=== PATIENT | female | born 1965 | race Caucasian/White ===

== ENCOUNTER 2019-03-22 16:44 | Emergency (ER) | payer SELFPAY ==
[2019-03-22] MEDS ORDERED: SODIUM CHLORIDE 0.9% 1,000 ML IV STA ×2 (17:05)
[2019-03-22] MEDS ORDERED: SODIUM CHLORIDE 0.9% 500 ML 500 ML IV STA (17:05)
[2019-03-22] MEDS ORDERED: ONDANSETRON 4 MG/2 ML VIAL IVP STA (17:05)
[2019-03-22] MEDS ORDERED: PANTOPRAZOLE 40 MG/10 ML VIAL IVP STA (17:19)
[2019-03-22] MEDS ORDERED: KETOROLAC 30 MG/ML 1 ML VIAL IVP STA (17:19)
[2019-03-22] MEDS ORDERED: DIAZEPAM 5 MG/ML 2 ML INJ IVP STA (17:19)
[2019-03-22 17:43] LABS: Basophils # (A) 0.1 k/uL (0-0.2); Basophils % (A) 2 %; Eosinophils # (A) 0.2 k/uL (0-0.7); Eosinophils % (A) 2 %; HCT 37.8 % (34.0-46.0); HGB 12.4 gm/dL (11.4-16.0); Lymphocytes # (A) 3.1 k/uL (1.0-4.8); Lymphocytes % (A) 41 %; MCH 30.1 pg (25.0-35.0); MCHC 32.8 g/dL (31.0-37.0); MCV 91.8 fL (80.0-100.0); Mean Platelet Volume 7.5; Monocytes # (A) 0.4 k/uL (0-1.0); Monocytes % (A) 5 %; Neutrophils # (A) 3.6 k/uL (1.3-7.7); Neutrophils % (A) 48 %; Platelet Count 409 k/uL (150-450); RBC 4.11 m/uL (3.80-5.40); RDW 12.8 % (11.5-15.5); WBC 7.5 k/uL (3.8-10.6)
[2019-03-22 17:52] LABS: ALT 12 U/L (4-34); AST 28 U/L (14-36); African American GFR (CKD) >90 (>60 ml/min/1.73 sqM); Albumin 4.6 g/dL (3.5-5.0); Alkaline Phosphatase 66 U/L (38-126); Anion Gap 10 mmol/L; Blood Urea Nitrogen 20 mg/dL (7-17); Calcium 9.8 mg/dL (8.4-10.2); Carbon Dioxide 24 mmol/L (22-30); Chloride 107 mmol/L (98-107); Glucose 106 mg/dL (74-99); Magnesium 1.9 mg/dL (1.6-2.3); Non-African American GFR(CKD) >90 (>60 ml/min/1.73 sqM); Phosphorus 3.3 mg/dL (2.5-4.5); Potassium 3.6 mmol/L (3.5-5.1); Sodium 141 mmol/L (137-145); Total Bilirubin 0.5 mg/dL (0.2-1.3); Total Protein 7.3 g/dL (6.3-8.2)
--- NOTE | 2019-03-22 18:00 | ED ---
Nausea/Vomiting/Diarrhea HPI - General Chief complaint: Nausea/Vomiting/Diarrhea Stated complaint: nausea/vomiting/body aches Time Seen by Provider: 03/22/19 16:55 Source: patient, RN notes reviewed, old records reviewed Mode of arrival: wheelchair Limitations: no limitations - History of Present Illness Initial comments: This is a 53-year-old female DF for evaluation of nausea vomiting and diarrhea muscle aches muscle pains fevers and chills. Immunizations up-to-date recent travel history from [place], patient is new to [facility]. No known other sick contacts. No recent inpatient hospitalizations. No recent medication changes patient not currently taking her medications as 9 drug or alcohol abuse MD complaint: nausea, vomiting, abdominal pain -: days(s) Description of Vomiting: food contents Description of Diarrhea: water Location: diffuse Radiation: none Severity: mild Severity scale (1-10): 1 Quality: cramping, aching Consistency: intermittent Improves with: none Worsens with: none Context: sick contacts Associated Symptoms: myalgias, nausea/vomiting, weakness - Related Data Allergies Allergy/AdvReac Type Severity Reaction Status Date / Time haloperidol Allergy Rapid Verified 03/22/19 17:56 Heart Rate nitrofurantoin Allergy Rash/Hives Verified 03/22/19 17:56 [From Macrobid] prochlorperazine Allergy Rapid Verified 03/22/19 17:56 [From Compazine] Heart Rate Review of Systems ROS Statement: Those systems with pertinent positive or pertinent negative responses have been documented in the HPI. ROS Other: All systems not noted in ROS Statement are negative. Past Medical History Additional Past Medical History / Comment(s): restless leg, back pain History of Any Multi-Drug Resistant Organisms: None Reported Past Surgical History: Appendectomy, Breast Surgery, Section, Hysterectomy Past Psychological History: No Psychological Hx Reported Smoking Status: Never smoker Past Alcohol Use History: None Reported Past Drug Use History: None Reported General Exam Limitations: no limitations General appearance: alert, in no apparent distress Head exam: Present: atraumatic, normocephalic, normal inspection Eye exam: Present: normal appearance, PERRL, EOMI. Absent: scleral icterus, conjunctival injection, periorbital swelling ENT exam: Present: normal exam, mucous membranes moist Neck exam: Present: normal inspection. Absent: tenderness, meningismus, lymphadenopathy Respiratory exam: Present: normal lung sounds bilaterally. Absent: respiratory distress, wheezes, rales, rhonchi, stridor Cardiovascular Exam: Present: normal rhythm, tachycardia, normal heart sounds. Absent: systolic murmur, diastolic murmur, rubs, gallop, clicks GI/Abdominal exam: Present: soft, normal bowel sounds. Absent: distended, tenderness, guarding, rebound, rigid Extremities exam: Present: normal inspection, full ROM, normal capillary refill. Absent: tenderness, pedal edema, joint swelling, calf tenderness Back exam: Present: normal inspection Neurological exam: Present: alert, oriented X3, CN II-XII intact Psychiatric exam: Present: normal affect, normal mood Skin exam: Present: warm, dry, intact, normal color. Absent: rash Course Vital Signs 03/22/19 03/22/19 16:48 19:16 Temperature 98.2 F Pulse Rate 109 H 90 Respiratory 20 20 Rate Blood Pressure 118/85 107/86 O2 Sat by Pulse 98 98 Oximetry - Reevaluation(s) Reevaluation #1: 03/22/19 18:24 Medical records reviewed Reevaluation #2: 03/22/19 18:24 Nausea vomiting pain is improved currently Medical Decision Making - Medical Decision Making 53 female feeling significantly improved labwork otherwise reveals no abnormalities, symptoms significantly improved here in the ER patient will be discharged home - Lab Data Result diagrams: 03/22/19 17:32 03/22/19 17:32 Lab Results 03/22/19 03/22/19 03/22/19 Range/Units 17:32 17:32 17:32 WBC 7.5 (3.8-10.6) k/uL RBC 4.11 (3.80-5.40) m/uL Hgb 12.4 (11.4-16.0) gm/dL Hct 37.8 (34.0-46.0) % MCV 91.8 (80.0-100.0) fL MCH 30.1 (25.0-35.0) pg MCHC 32.8 (31.0-37.0) g/dL RDW 12.8 (11.5-15.5) % Plt Count 409 (150-450) k/uL Neutrophils % 48 % Lymphocytes % 41 % Monocytes % 5 % Eosinophils % 2 % Basophils % 2 % Neutrophils # 3.6 (1.3-7.7) k/uL Lymphocytes # 3.1 (1.0-4.8) k/uL Monocytes # 0.4 (0-1.0) k/uL Eosinophils # 0.2 (0-0.7) k/uL Basophils # 0.1 (0-0.2) k/uL Sodium 141 (137-145) mmol/L Potassium 3.6 (3.5-5.1) mmol/L Chloride 107 (98-107) mmol/L Carbon Dioxide 24 (22-30) mmol/L Anion Gap 10 mmol/L BUN 20 H (7-17) mg/dL Creatinine 0.66 (0.52-1.04) mg/dL Est GFR (CKD-EPI)AfAm >90 (>60 ml/min/1.73 sqM) Est GFR (CKD-EPI)NonAf >90 (>60 ml/min/1.73 sqM) Glucose 106 H (74-99) mg/dL Plasma Lactic Acid Aaron 1.2 (0.7-2.0) mmol/L Calcium 9.8 (8.4-10.2) mg/dL Phosphorus 3.3 (2.5-4.5) mg/dL Magnesium 1.9 (1.6-2.3) mg/dL Total Bilirubin 0.5 (0.2-1.3) mg/dL AST 28 (14-36) U/L ALT 12 (4-34) U/L Alkaline Phosphatase 66 (38-126) U/L Troponin I (0.000-0.034) ng/mL Total Protein 7.3 (6.3-8.2) g/dL Albumin 4.6 (3.5-5.0) g/dL Lipase (23-300) U/L Urine Color Urine Appearance (Clear) Urine pH (5.0-8.0) Ur Specific [place] (1.001-1.035) Urine Protein (Negative) Urine Glucose (UA) (Negative) Urine Ketones (Negative) Urine Blood (Negative) Urine Nitrite (Negative) Urine Bilirubin (Negative) Urine Urobilinogen (<2.0) mg/dL Ur Leukocyte Esterase (Negative) Urine RBC (0-5) /hpf Urine WBC (0-5) /hpf Ur Squamous Epith Cells (0-4) /hpf Hyaline Casts (0-2) /lpf Urine Mucus (None) /hpf Influenza Type A RNA (Not Detectd) Influenza Type B (PCR) (Not Detectd) 03/22/19 03/22/19 03/22/19 Range/Units 17:32 18:11 18:55 WBC (3.8-10.6) k/uL RBC (3.80-5.40) m/uL Hgb (11.4-16.0) gm/dL Hct (34.0-46.0) % MCV (80.0-100.0) fL MCH (25.0-35.0) pg MCHC (31.0-37.0) g/dL RDW (11.5-15.5) % Plt Count (150-450) k/uL Neutrophils % % Lymphocytes % % Monocytes % % Eosinophils % % Basophils % % Neutrophils # (1.3-7.7) k/uL Lymphocytes # (1.0-4.8) k/uL Monocytes # (0-1.0) k/uL Eosinophils # (0-0.7) k/uL Basophils # (0-0.2) k/uL Sodium (137-145) mmol/L Potassium (3.5-5.1) mmol/L Chloride (98-107) mmol/L Carbon Dioxide (22-30) mmol/L Anion Gap mmol/L BUN (7-17) mg/dL Creatinine (0.52-1.04) mg/dL Est GFR (CKD-EPI)AfAm (>60 ml/min/1.73 sqM) Est GFR (CKD-EPI)NonAf (>60 ml/min/1.73 sqM) Glucose (74-99) mg/dL Plasma Lactic Acid Aaron (0.7-2.0) mmol/L Calcium (8.4-10.2) mg/dL Phosphorus (2.5-4.5) mg/dL Magnesium (1.6-2.3) mg/dL Total Bilirubin (0.2-1.3) mg/dL AST (14-36) U/L ALT (4-34) U/L Alkaline Phosphatase (38-126) U/L Troponin I <0.012 (0.000-0.034) ng/mL Total Protein (6.3-8.2) g/dL Albumin (3.5-5.0) g/dL Lipase 89 (23-300) U/L Urine Color Urine Appearance (Clear) Urine pH (5.0-8.0) Ur Specific [place] (1.001-1.035) Urine Protein (Negative) Urine Glucose (UA) (Negative) Urine Ketones (Negative) Urine Blood (Negative) Urine Nitrite (Negative) Urine Bilirubin (Negative) Urine Urobilinogen (<2.0) mg/dL Ur Leukocyte Esterase (Negative) Urine RBC (0-5) /hpf Urine WBC (0-5) /hpf Ur Squamous Epith Cells (0-4) /hpf Hyaline Casts (0-2) /lpf Urine Mucus (None) /hpf Influenza Type A RNA Not Detected (Not Detectd) Influenza Type B (PCR) Not Detected (Not Detectd) 03/22/19 Range/Units 19:20 WBC (3.8-10.6) k/uL RBC (3.80-5.40) m/uL Hgb (11.4-16.0) gm/dL Hct (34.0-46.0) % MCV (80.0-100.0) fL MCH (25.0-35.0) pg MCHC (31.0-37.0) g/dL RDW (11.5-15.5) % Plt Count (150-450) k/uL Neutrophils % % Lymphocytes % % Monocytes % % Eosinophils % % Basophils % % Neutrophils # (1.3-7.7) k/uL Lymphocytes # (1.0-4.8) k/uL Monocytes # (0-1.0) k/uL Eosinophils # (0-0.7) k/uL Basophils # (0-0.2) k/uL Sodium (137-145) mmol/L Potassium (3.5-5.1) mmol/L Chloride (98-107) mmol/L Carbon Dioxide (22-30) mmol/L Anion Gap mmol/L BUN (7-17) mg/dL Creatinine (0.52-1.04) mg/dL Est GFR (CKD-EPI)AfAm (>60 ml/min/1.73 sqM) Est GFR (CKD-EPI)NonAf (>60 ml/min/1.73 sqM) Glucose (74-99) mg/dL Plasma Lactic Acid Aaron (0.7-2.0) mmol/L Calcium (8.4-10.2) mg/dL Phosphorus (2.5-4.5) mg/dL Magnesium (1.6-2.3) mg/dL Total Bilirubin (0.2-1.3) mg/dL AST (14-36) U/L ALT (4-34) U/L Alkaline Phosphatase (38-126) U/L Troponin I (0.000-0.034) ng/mL Total Protein (6.3-8.2) g/dL Albumin (3.5-5.0) g/dL Lipase (23-300) U/L Urine Color Yellow Urine Appearance Clear (Clear) Urine pH 6.5 (5.0-8.0) Ur Specific [place] 1.034 (1.001-1.035) Urine Protein 1+ H (Negative) Urine Glucose (UA) Negative (Negative) Urine Ketones 1+ H (Negative) Urine Blood Negative (Negative) Urine Nitrite Negative (Negative) Urine Bilirubin Negative (Negative) Urine Urobilinogen <2.0 (<2.0) mg/dL Ur Leukocyte Esterase Negative (Negative) Urine RBC 5 (0-5) /hpf Urine WBC 2 (0-5) /hpf Ur Squamous Epith Cells 2 (0-4) /hpf Hyaline Casts 1 (0-2) /lpf Urine Mucus Moderate H (None) /hpf Influenza Type A RNA (Not Detectd) Influenza Type B (PCR) (Not Detectd) - EKG Data -: EKG Interpreted by Me (EKG shows sinus rhythm rate of 86, FL 136, QRS 78, QTC 464) Disposition Clinical Impression: Dehydration, Gastroenteritis Disposition: HOME SELF-CARE Condition: Good Instructions (If sedation given, give patient instructions): Acute Nausea and Vomiting (ED) Is patient prescribed a controlled substance at d/c from ED?: No Referrals: None,Stated [Primary Care Provider] - 1-2 days
[2019-03-22] MEDS ORDERED: MORPHINE SULFATE 4 MG/ML SYRINGE IVP STA (18:24)
[2019-03-22 19:50] LABS: Appearance,Urine Clear (Clear); Bilirubin,Urine Negative (Negative); Blood,Urine Negative (Negative); Color,Urine Yellow; Glucose,Urine (UA) Negative (Negative); Hyaline Casts,Urine 1 /lpf (0-2); Ketones,Urine 1+ (Negative); Leukocyte Esterase,Urine Negative (Negative); Mucus,Urine Moderate /hpf; Nitrite,Urine Negative (Negative); PH, Urine 6.5 (5.0-8.0); Protein,Urine 1+ (Negative); RBC,Urine 5 /hpf (0-5); Specific Gravity,Urine 1.034 (1.001-1.035); Squamous Epithelial Cell,Urine 2 /hpf (0-4); Urobilinogen,Urine <2.0 mg/dL (<2.0); WBC,Urine 2 /hpf (0-5)
[2019-03-22] MEDS ORDERED: ONDANSETRON 4 MG ODT STARTER PACK 2 TAB BTL PO STA (19:53)
[2019-03-22] MEDS ORDERED: ACET/COD 300 MG/30 MG STARTER PACK 6 TAB BTL PO STA (19:53)
[2019-03-22] MEDS ORDERED: IBUPROFEN 600 MG STARTER PACK 4 TAB BTL PO STA (19:53)
[2019-03-22 20:21] VITALS: BP 116/83; PULSE 87; RESP 16; TEMP 98.3
== END 2019-03-22 20:29 | disposition home or self-care (01) ==
LOC: EC 16:44
DX: K52.9 Noninfective gastroenteritis and colitis, unspecified (principal); E86.0 Dehydration; Z88.1 Allergy status to other antibiotic agents; Z88.8 Allergy status to other drugs, medicaments and biological substances; Z90.89 Acquired absence of other organs; Z90.710 Acquired absence of both cervix and uterus
CPT/HCPCS: 36415; 93005; 80053; 83605; 83690; 83735; 84100; 84484; 85025; 81001; 87502; 99284; 96374; 96375 ×4; 96361 ×3; J2270; J3360; J2405; J1885; S0119; C9113

== ENCOUNTER 2019-09-02 13:43 | Emergency (ER) | payer BC ==
[2019-09-02 13:50] VITALS: BP 115/73; PULSE 99; RESP 20; TEMP 98.3
[2019-09-02] MEDS ORDERED: KETOROLAC 60 MG/2 ML VIAL IM STA (14:19)
[2019-09-02] MEDS ORDERED: ORPHENADRINE 30 MG/ML 2 ML VIAL IM STA (14:19)
--- NOTE | 2019-09-02 14:36 | ED ---
Back Pain HPI - General Chief Complaint: Back Pain/Injury Stated Complaint: Back Pain Time Seen by Provider: 09/02/19 14:04 Source: patient, RN notes reviewed, old records reviewed Limitations: no limitations - History of Present Illness Initial Comments: Patient is a 53-year-old female who presents emergency department today for evaluation with complaints of thoracic back, neck pain, and abdominal wall strain after doing heavy lifting on moving a bed upstairs to her new apartment. Patient reports she saw a chiropractor on Tuesday and has been taking Tylenol and Motrin for pain. She reports that her muscles in her neck and back feel very tight. She reports that when she was lifting she felt a popping sensation. Patient states that she has no numbness or tingling on her legs. She reports that her abdominal anus reproducible with movement and the motion of doing an abdominal crunch. - Related Data Previous Rx's Medication Instructions Recorded Cyclobenzaprine [Flexeril] 10 mg PO TID #12 tab 09/02/19 Ibuprofen [Motrin] 600 mg PO Q8HR PRN #20 tab 09/02/19 Allergies Allergy/AdvReac Type Severity Reaction Status Date / Time haloperidol Allergy Rapid Verified 09/02/19 13:50 Heart Rate nitrofurantoin Allergy Rash/Hives Verified 09/02/19 13:50 [From Macrobid] prochlorperazine Allergy Rapid Verified 09/02/19 13:50 [From Compazine] Heart Rate Review of Systems ROS Statement: Those systems with pertinent positive or pertinent negative responses have been documented in the HPI. ROS Other: All systems not noted in ROS Statement are negative. Past Medical History Past Medical History: Rheumatoid Arthritis (RA) Additional Past Medical History / Comment(s): restless leg, back pain, scoliosis History of Any Multi-Drug Resistant Organisms: None Reported Past Surgical History: Appendectomy, Breast Surgery, Section, Hysterectomy Past Psychological History: No Psychological Hx Reported Smoking Status: Never smoker Past Alcohol Use History: None Reported Past Drug Use History: None Reported General Exam - General Exam Comments Initial Comments: Patient is a 53-year-old female. Alert and oriented 3. No significant distress. Limitations: no limitations General appearance: alert, in no apparent distress Head exam: Present: atraumatic, normocephalic, normal inspection Eye exam: Present: normal appearance, PERRL, EOMI. Absent: scleral icterus, conjunctival injection, periorbital swelling ENT exam: Present: normal exam, mucous membranes moist, other (Patient has cervical spinal muscle tenderness. ) Neck exam: Present: normal inspection, tenderness (C5-C7, muscle spasm ). Absent: meningismus, lymphadenopathy Respiratory exam: Present: normal lung sounds bilaterally. Absent: respiratory distress, wheezes, rales, rhonchi, stridor Cardiovascular Exam: Present: regular rate, normal rhythm, normal heart sounds. Absent: systolic murmur, diastolic murmur, rubs, gallop, clicks GI/Abdominal exam: Present: soft, normal bowel sounds. Absent: distended, tenderness, guarding, rebound, rigid Extremities exam: Present: normal inspection, full ROM, normal capillary refill. Absent: tenderness, pedal edema, joint swelling, calf tenderness Back exam: Present: normal inspection, tenderness (thoracic spinal and paraspinal tenderness) Neurological exam: Present: alert, oriented X3, CN II-XII intact Psychiatric exam: Present: normal affect, normal mood Course Vital Signs 09/02/19 13:47 Temperature 98.3 F Pulse Rate 99 Respiratory 20 Rate Blood Pressure 115/73 O2 Sat by Pulse 99 Oximetry Medical Decision Making - Medical Decision Making Patient's 53-year-old female with onset of neck and thoracic back pain and tenderness after heavy lifting up a mattress on . She reports she is lifting it upstairs apartment. Patient reports she heard a popping sensation. She has no neurological deficit this time. Patient does have some thoracic spinal tenderness. Mainly overs T7 through 10. Patient's thoracic spine x-ray shows no compression fractures. There is evidence of degenerative disc disease noted. Cervical spine also shows spinal listhesis of C5 and C6. I discussed this starting this anti-inflammatory medicine and muscle relaxers and shortness of pavement while in emergency room. She is given IM Toradol and Norflex reevaluation she states slightly improved. I discussed following up with her primary care physician and she can continue chiropractic therapy. - Radiology Data Radiology results: report reviewed No acute fracture or subluxation on thoracic spine. Cervical spine shows evidence of degenerative disc disease. Associated spinal listhesis at C5-C6. Soft tissues are normal. Disposition Clinical Impression: Muscle spasms of neck, Upper back strain, Muscular abdominal pain in epigastric region Disposition: HOME SELF-CARE Condition: Good Instructions (If sedation given, give patient instructions): Back Pain (ED) Additional Instructions: Please use medication as discussed. Alternating between heat and ice over the back and neck to help promote muscle relaxation. Please follow up with family doctor if symptoms have not improved over the next two days. Please return to the emergency room if your symptoms increase or worsen or for any other concerns. Prescriptions: Cyclobenzaprine [Flexeril] 10 mg PO TID #12 tab Ibuprofen [Motrin] 600 mg PO Q8HR PRN #20 tab PRN Reason: Pain Is patient prescribed a controlled substance at d/c from ED?: No Referrals: None,Stated [Primary Care Provider] - 1-2 days Dav Sloan MD [REFERRING] - 1-2 days Time of Disposition: 15:13
[2019-09-02] MEDS ORDERED: ACET/COD 300 MG/30 MG STARTER PACK 6 TAB BTL PO STA (14:47)
--- NOTE | 2019-09-02 15:00 | XR ---
Cervical spine HISTORY: Pain after lifting 3 views of the cervical spine Cervical vertebral bodies show preserved height and alignment. There is loss of disc height at C5-C6, associated spondylosis. Prevertebral soft tissues are normal. Bone mineralization is normal. IMPRESSION: Degenerative disc disease.
--- NOTE | 2019-09-02 15:01 | XR ---
Thoracic spine HISTORY: Pain 3 views of the thoracic spine There is a slight spinal curvature. Thoracic vertebral bodies show preserved height and bone minerali zation. Disc spaces are maintained. Spondylosis present at the upper lumbar spine greater than thorac ic vertebral bodies. IMPRESSION: No acute fracture or subluxation.
== END 2019-09-02 15:39 | disposition home or self-care (01) ==
LOC: EC 13:43
DX: S29.012A Strain of muscle and tendon of back wall of thorax, initial encounter (principal); M43.12 Spondylolisthesis, cervical region; M79.18 Myalgia, other site; Z88.8 Allergy status to other drugs, medicaments and biological substances; X50.0XXA Overexertion from strenuous movement or load, initial encounter; Y92.009 Unspecified place in unspecified non-institutional (private) residence as the place of occurrence of the external cause
CPT/HCPCS: 72070; 72040; 99284; 96372 ×2; J2360; J1885

== ENCOUNTER 2019-09-03 14:24 | Emergency (ER) | payer BC ==
[2019-09-03 14:28] VITALS: BP 108/75; PULSE 81; RESP 18; TEMP 98.4
[2019-09-03] MEDS ORDERED: HYDROcodone/APAP 5-325MG 1 EACH TAB PO STA (15:05)
[2019-09-03] MEDS ORDERED: KETOROLAC 60 MG/2 ML VIAL IM STA (15:05)
[2019-09-03] MEDS ORDERED: LIDOCAINE 5% PATCH TOPICAL STA (15:05)
[2019-09-03] MEDS ORDERED: dexAMETHasone 4 MG TAB PO STA (15:05)
--- NOTE | 2019-09-03 15:05 | ED ---
Back Pain HPI - General Chief Complaint: Back Pain/Injury Stated Complaint: Revisit Back Pain Time Seen by Provider: 09/03/19 14:30 Source: patient, RN notes reviewed, old records reviewed Limitations: no limitations - History of Present Illness Initial Comments: This is a 53-year-old female DF for evaluation presents today for evaluation regards to back pain acute on chronic back pain ER visit for similar back pain. Patient is back pain worse today, similar symptoms yesterday. Patient has no neurological symptoms no loss of bowel or bladder no weakness able to ambulate w ithout difficulty Complaint: back pain -: days(s) Similar Symptoms Previously: Yes Place: home Radiation: none Severity: moderate Severity scale (1-10): 6 Quality: aching Consistency: constant Improves With: none Worsens With: movement Context: while lifting Associated Symptoms: denies other symptoms - Related Data Home Medications Medication Instructions Recorded Confirmed [id number] 1 tab PO Q4H PRN 09/03/19 09/03/19 [Excedrin] clonazePAM [KlonoPIN] 1 mg PO BID PRN 09/03/19 09/03/19 Previous Rx's Medication Instructions Recorded Cyclobenzaprine [Flexeril] 10 mg PO TID #12 tab 09/02/19 Ibuprofen [Motrin] 600 mg PO Q8HR PRN #20 tab 09/02/19 Allergies Allergy/AdvReac Type Severity Reaction Status Date / Time haloperidol Allergy Rapid Verified 09/03/19 15:10 Heart Rate nitrofurantoin Allergy Rash/Hives Verified 09/03/19 15:10 [From Macrobid] prochlorperazine Allergy Rapid Verified 09/03/19 15:10 [From Compazine] Heart Rate Review of Systems ROS Statement: Those systems with pertinent positive or pertinent negative responses have been documented in the HPI. ROS Other: All systems not noted in ROS Statement are negative. Past Medical History Past Medical History: Rheumatoid Arthritis (RA) Additional Past Medical History / Comment(s): restless leg, back pain, scoliosis History of Any Multi-Drug Resistant Organisms: None Reported Past Surgical History: Appendectomy, Breast Surgery, Section, Hysterectomy Past Psychological History: No Psychological Hx Reported Smoking Status: Never smoker Past Alcohol Use History: None Reported Past Drug Use History: None Reported General Exam Limitations: no limitations General appearance: alert, in no apparent distress Head exam: Present: atraumatic, normocephalic, normal inspection Eye exam: Present: normal appearance, PERRL, EOMI. Absent: scleral icterus, conjunctival injection, periorbital swelling ENT exam: Present: normal exam, mucous membranes moist Neck exam: Present: normal inspection. Absent: tenderness, meningismus, lymphadenopathy Respiratory exam: Present: normal lung sounds bilaterally. Absent: respiratory distress, wheezes, rales, rhonchi, stridor Cardiovascular Exam: Present: regular rate, normal rhythm, normal heart sounds. Absent: systolic murmur, diastolic murmur, rubs, gallop, clicks GI/Abdominal exam: Present: soft, normal bowel sounds. Absent: distended, tenderness, guarding, rebound, rigid Extremities exam: Present: normal inspection, full ROM, normal capillary refill. Absent: tenderness, pedal edema, joint swelling, calf tenderness Back exam: Present: normal inspection Neurological exam: Present: alert, oriented X3, CN II-XII intact Psychiatric exam: Present: normal affect, normal mood Skin exam: Present: warm, dry, intact, normal color. Absent: rash Course Vital Signs 09/03/19 14:25 Temperature 98.4 F Pulse Rate 81 Respiratory 18 Rate Blood Pressure 108/75 O2 Sat by Pulse 99 Oximetry - Reevaluation(s) Reevaluation #1: 09/03/19 15:18 Medical record is reviewed Reevaluation #2: 09/03/19 15:18 Patient has symptom relief Medical Decision Making - Medical Decision Making 53 female DF for evaluation of acute on chronic back pain. Symptoms essentially is a were yesterday, no new injuries patient can be discharged home, no fevers no neurological complaints Disposition Clinical Impression: Muscle spasms of neck, Mechanical back pain Disposition: HOME SELF-CARE Condition: Good Instructions (If sedation given, give patient instructions): Acute Low Back Pain (ED) Is patient prescribed a controlled substance at d/c from ED?: No Referrals: None,Stated [Primary Care Provider] - 1-2 days
[2019-09-03] MEDS ORDERED: traMADol 50 MG STARTER PACK 3 TAB BTL PO STA (15:16)
== END 2019-09-03 16:22 | disposition home or self-care (01) ==
LOC: EC 14:24
DX: M54.9 Dorsalgia, unspecified (principal); M62.838 Other muscle spasm; G89.29 Other chronic pain; M10.9 Gout, unspecified; Z88.1 Allergy status to other antibiotic agents; Z88.8 Allergy status to other drugs, medicaments and biological substances
CPT/HCPCS: 99284; 96372; J8540; J1885

== ENCOUNTER 2019-09-07 17:10 | Emergency (ER) | payer BC ==
[2019-09-07 17:14] VITALS: TEMP 98.3
[2019-09-07] MEDS ORDERED: diphenhydrAMINE 50 MG/ML 1 ML VIAL IVP STA (17:29)
[2019-09-07] MEDS ORDERED: KETOROLAC 30 MG/ML 1 ML VIAL IVP STA (17:29)
[2019-09-07] MEDS ORDERED: SODIUM CHLORIDE 0.9% 1,000 ML IV STA (17:29)
[2019-09-07] MEDS ORDERED: METOCLOPRAMIDE 5 MG/ML 2 ML VIAL IVP STA (17:29)
--- NOTE | 2019-09-07 17:32 | ED ---
Headache HPI - General Chief Complaint: Headache Stated Complaint: Headache Time Seen by Provider: 09/07/19 17:16 Mode of arrival: ambulatory Limitations: no limitations - History of Present Illness Initial Comments: Patient is a 53-year-old female, history of chronic low back pain, presenting to emergency Department with complaints of a headache as well as generalized body aches, nausea and vomiting that started this morning. Patient states yesterday she was feeling great. She states she woke up this morning with generalized body aches, nausea. She's had 3 episodes of vomiting. She states she also has a severe headache. She states the headache started gradually and has been increasing in intensity throughout today. She denies history of migraines. She denies any traumas or falls. She denies any fever, chills. She denies any specific areas of abdominal pain, no diarrhea. She has no further complaints at this time. Upon arrival to the ER, patient is slightly tachycardia, otherwise normal vitals - Related Data Home Medications Medication Instructions Recorded Confirmed Dccbwvd-Ords-Idri [id number] 1 tab PO Q4H PRN 09/03/19 09/03/19 [Excedrin] clonazePAM [KlonoPIN] 1 mg PO BID PRN 09/03/19 09/03/19 Previous Rx's Medication Instructions Recorded Cyclobenzaprine [Flexeril] 10 mg PO TID #12 tab 09/02/19 Ibuprofen [Motrin] 600 mg PO Q8HR PRN #20 tab 09/02/19 Allergies Allergy/AdvReac Type Severity Reaction Status Date / Time haloperidol Allergy Rapid Verified 09/07/19 18:59 Heart Rate nitrofurantoin Allergy Rash/Hives Verified 09/07/19 18:59 [From Macrobid] prochlorperazine Allergy Rapid Verified 09/07/19 18:59 [From Compazine] Heart Rate Review of Systems ROS Statement: Those systems with pertinent positive or pertinent negative responses have been documented in the HPI. ROS Other: All systems not noted in ROS Statement are negative. Past Medical History Past Medical History: Rheumatoid Arthritis (RA) Additional Past Medical History / Comment(s): restless leg, back pain, scoliosis History of Any Multi-Drug Resistant Organisms: None Reported Past Surgical History: Appendectomy, Breast Surgery, Section, Hy sterectomy Past Psychological History: No Psychological Hx Reported Smoking Status: Never smoker Past Alcohol Use History: None Reported Past Drug Use History: None Reported General Exam - General Exam Comments Initial Comments: GENERAL: Well-appearing, well-nourished, nontoxic and in no acute distress. HEAD: Atraumatic, normocephalic. EYES: Pupils equal round and reactive to light, extraocular movements intact, sclera anicteric, conjunctiva are normal. ENT: TMs normal, nares patent, oropharynx clear without exudates. Moist mucous membranes. NECK: Normal range of motion, supple without lymphadenopathy or JVD. LUNGS: Breath sounds clear to auscultation bilaterally and equal. No wheezes rales or rhonchi. HEART: Tachycardia rate and rhythm without murmurs, rubs or gallops. ABDOMEN: Soft, nontender, normoactive bowel sounds. No guarding, no rebound. No masses appreciated. : Deferred EXTREMITIES: Normal range of motion, no pitting or edema. No clubbing or cyanosis. Strength is 5 out of 5 upper and lower extremities bilaterally, sensation is equal and bilateral. NEUROLOGICAL: Cranial nerves II through XII grossly intact. Normal speech, normal gait. PSYCH: Normal mood, normal affect. SKIN: Warm, Dry, normal turgor, no rashes or lesions noted. Limitations: no limitations Course Vital Signs 09/07/19 17:12 Temperature 98.3 F Pulse Rate 113 H Respiratory 20 Rate Blood Pressure 119/81 O2 Sat by Pulse 96 Oximetry Medical Decision Making - Medical Decision Making Patient is a 53-year-old female here for a headache, generalized body aches, nausea and vomiting since this morning. Patient was slightly tachycardia upon arrival, afebrile. Her exam has no acute findings, no neuro deficits. Labs are unremarkable, urine shows no evidence of infection. Patient was given pain control, fluids, Reglan and Benadryl. She reports improvement in her symptoms. She is stable for discharge. 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 This test is pending. Recommended additional fluids as well as trial of Excedrin Extra Strength for additional headache. Patient is agreement with this plan of care. Return parameters were discussed with the patient she verbalized understanding. Case discussed with Dr. Lyman. - Lab Data Result diagrams: 09/07/19 17:50 09/07/19 17:50 Lab Results 09/07/19 09/07/19 09/07/19 Range/Units 17:48 17:50 17:50 WBC 5.5 (3.8-10.6) k/uL RBC 3.94 (3.80-5.40) m/uL Hgb 11.9 (11.4-16.0) gm/dL Hct 36.5 (34.0-46.0) % MCV 92.6 (80.0-100.0) fL MCH 30.1 (25.0-35.0) pg MCHC 32.5 (31.0-37.0) g/dL RDW 13.5 (11.5-15.5) % Plt Count 298 (150-450) k/uL Neutrophils % 42 % Lymphocytes % 45 % Monocytes % 6 % Eosinophils % 5 % Basophils % 1 % Neutrophils # 2.3 (1.3-7.7) k/uL Lymphocytes # 2.5 (1.0-4.8) k/uL Monocytes # 0.3 (0-1.0) k/uL Eosinophils # 0.3 (0-0.7) k/uL Basophils # 0.1 (0-0.2) k/uL Sodium 141 (137-145) mmol/L Potassium 3.8 (3.5-5.1) mmol/L Chloride 109 H (98-107) mmol/L Carbon Dioxide 24 (22-30) mmol/L Anion Gap 8 mmol/L BUN 17 (7-17) mg/dL Creatinine 0.68 (0.52-1.04) mg/dL Est GFR (CKD-EPI)AfAm >90 (>60 ml/min/1.73 sqM) Est GFR (CKD-EPI)NonAf >90 (>60 ml/min/1.73 sqM) Glucose 106 H (74-99) mg/dL Calcium 9.2 (8.4-10.2) mg/dL Total Bilirubin 0.2 (0.2-1.3) mg/dL AST 18 (14-36) U/L ALT 10 (4-34) U/L Alkaline Phosphatase 82 (38-126) U/L Total Protein 6.4 (6.3-8.2) g/dL Albumin 4.2 (3.5-5.0) g/dL Urine Color Yellow Urine Appearance Cloudy H (Clear) Urine pH 6.0 (5.0-8.0) Ur Specific [place] 1.032 (1.001-1.035) Urine Protein Trace H (Negative) Urine Glucose (UA) Negative (Negative) Urine Ketones Negative (Negative) Urine Blood Negative (Negative) Urine Nitrite Negative (Negative) Urine Bilirubin Negative (Negative) Urine Urobilinogen <2.0 (<2.0) mg/dL Ur Leukocyte Esterase Negative (Negative) Urine RBC 2 (0-5) /hpf Urine WBC 3 (0-5) /hpf Ur Squamous Epith Cells 5 H (0-4) /hpf Calcium Oxalate Crystal Occasional H (None) /hpf Hyaline Casts 3 H (0-2) /lpf Urine Mucus Moderate H (None) /hpf Disposition Clinical Impression: Headache, Nausea & vomiting Disposition: HOME SELF-CARE Condition: Stable Instructions (If sedation given, give patient instructions): Acute Headache (ED ) Additional Instructions: Please return to the Emergency Department if symptoms worsen or any other concerns. Continue to increase fluid intake. Trial of Excedrin for migraine for additional headaches. Zofran as needed for nausea. Follow up with PCP. Is patient prescribed a controlled substance at d/c from ED?: No Referrals: Dav Sloan MD [Primary Care Provider] - 1-2 days
[2019-09-07 18:04] LABS: Basophils # (A) 0.1 k/uL (0-0.2); Basophils % (A) 1 %; Eosinophils # (A) 0.3 k/uL (0-0.7); Eosinophils % (A) 5 %; HCT 36.5 % (34.0-46.0); HGB 11.9 gm/dL (11.4-16.0); Lymphocytes # (A) 2.5 k/uL (1.0-4.8); Lymphocytes % (A) 45 %; MCH 30.1 pg (25.0-35.0); MCHC 32.5 g/dL (31.0-37.0); MCV 92.6 fL (80.0-100.0); Mean Platelet Volume 7.5; Monocytes # (A) 0.3 k/uL (0-1.0); Monocytes % (A) 6 %; Neutrophils # (A) 2.3 k/uL (1.3-7.7); Neutrophils % (A) 42 %; Platelet Count 298 k/uL (150-450); RBC 3.94 m/uL (3.80-5.40); RDW 13.5 % (11.5-15.5); WBC 5.5 k/uL (3.8-10.6)
[2019-09-07 18:12] LABS: ALT 10 U/L (4-34); AST 18 U/L (14-36); African American GFR (CKD) >90 (>60 ml/min/1.73 sqM); Albumin 4.2 g/dL (3.5-5.0); Alkaline Phosphatase 82 U/L (38-126); Anion Gap 8 mmol/L; Blood Urea Nitrogen 17 mg/dL (7-17); Calcium 9.2 mg/dL (8.4-10.2); Carbon Dioxide 24 mmol/L (22-30); Chloride 109 mmol/L (98-107); Glucose 106 mg/dL (74-99); Non-African American GFR(CKD) >90 (>60 ml/min/1.73 sqM); Potassium 3.8 mmol/L (3.5-5.1); Sodium 141 mmol/L (137-145); Total Bilirubin 0.2 mg/dL (0.2-1.3); Total Protein 6.4 g/dL (6.3-8.2)
[2019-09-07 18:56] LABS: Appearance,Urine Cloudy (Clear); Bilirubin,Urine Negative (Negative); Blood,Urine Negative (Negative); Calcium Oxalate Crystals,Urine Occasional /hpf; Color,Urine Yellow; Glucose,Urine (UA) Negative (Negative); Hyaline Casts,Urine 3 /lpf (0-2); Ketones,Urine Negative (Negative); Leukocyte Esterase,Urine Negative (Negative); Mucus,Urine Moderate /hpf; Nitrite,Urine Negative (Negative); Protein,Urine Trace (Negative); RBC,Urine 2 /hpf (0-5); Specific Gravity,Urine 1.032 (1.001-1.035); Squamous Epithelial Cell,Urine 5 /hpf (0-4); Urobilinogen,Urine <2.0 mg/dL (<2.0); WBC,Urine 3 /hpf (0-5)
[2019-09-07] MEDS ORDERED: ONDANSETRON 4 MG ODT STARTER PACK 2 TAB BTL PO STA (19:05)
[2019-09-07 19:17] VITALS: BP 114/82; PULSE 84; RESP 18
== END 2019-09-07 19:17 | disposition home or self-care (01) ==
LOC: EC 17:10
DX: R51 Headache (principal); R11.2 Nausea with vomiting, unspecified; Z88.8 Allergy status to other drugs, medicaments and biological substances
CPT/HCPCS: 36415; 80053; 85025; 81001; 99284; 96374; 96375 ×2; 96361; U0003; J1200; J2765; J1885; S0119

== ENCOUNTER → 2020-01-11 | Outpatient (CLI) | payer BC ==
[2020-01-11 10:24] LABS: Basophils # (A) 0.1 k/uL (0-0.2); Basophils % (A) 1 %; Eosinophils # (A) 0.2 k/uL (0-0.7); Eosinophils % (A) 5 %; HCT 37.1 % (34.0-46.0); HGB 12.1 gm/dL (11.4-16.0); Lymphocytes # (A) 2.6 k/uL (1.0-4.8); Lymphocytes % (A) 51 %; MCH 29.7 pg (25.0-35.0); MCHC 32.6 g/dL (31.0-37.0); MCV 91.2 fL (80.0-100.0); Mean Platelet Volume 7.3; Monocytes # (A) 0.3 k/uL (0-1.0); Monocytes % (A) 5 %; Neutrophils # (A) 1.8 k/uL (1.3-7.7); Neutrophils % (A) 35 %; Platelet Count 330 k/uL (150-450); RBC 4.06 m/uL (3.80-5.40); RDW 12.7 % (11.5-15.5); WBC 5.1 k/uL (3.8-10.6)
[2020-01-11 15:11] LABS: African American GFR (CKD) 96.9 (60.0-200.0); Albumin 4.4 g/dL (3.80-4.90); Albumin/Globulin Ratio 2.1 (1.60-3.17); Anion Gap 7.4 mmol/L (4.00-12.00); Calcium 9.8 mg/dL (8.7-10.3); Carbon Dioxide 29.6 mmol/L (21.6-31.8); Chol/HDL Ratio 2.91; Globulin 2.1 g/dL (1.6-3.3); LDL Cholesterol,Calculated 91.4 mg/dL (0.0-131.0); Non-African American GFR(CKD) 83.6 (60.0-200.0); Potassium 3.8 mmol/L (3.5-5.5); Total Bilirubin 0.4 mg/dL (0.2-1.2); Total Protein 6.5 g/dL (6.2-8.2); VLDL Calculation 19.6 mg/dL (5.00-40.00)
== END | disposition home or self-care (01) ==
LOC: LABWHC1 09:48
PROVIDERS: ATTEND Nurse Practitioner Family
DX: Z00.00 Encounter for general adult medical examination without abnormal findings (principal); K29.70 Gastritis, unspecified, without bleeding
CPT/HCPCS: 36415; 80053; 80061; 82306; 83036; 84443; 85025

== ENCOUNTER → 2020-01-24 | Outpatient (CLI) | payer BC ==
--- NOTE | 2020-01-25 08:46 | CT ---
EXAMINATION TYPE: CT thor lumbar spine wo con DATE OF EXAM: 01/24/2020 COMPARISON: None HISTORY: BACK PAIN X MANY YEARS CT DLP: 613.7 mGycm Automated exposure control for dose reduction was used. Tract technique: Axial images 3 mm thick sect ions. Reconstructed images in the coronal and sagittal plane. FINDINGS: No spinal canal stenosis present. Vertebral body heights are preserved. Alignment is unremarkable. Di sc heights are preserved. No suspicious large focal disc herniations or significant disc bulges are e vident. Minimal anterior thecal sac flattening L4-3-4 from disc material may be present. There is a central broad base focal protrusion at L4-5. Correlate with the radicular symptoms. Spondylolysis of L5 is evident. Some disc uncovering at L5-S1 may be present. No stenosis is present. IMPRESSION: 1. SPONDYLOLYSIS L5. 2. BROAD-BASED CENTRAL FOCAL BULGE L4-5 WITH MODERATE ANTERIOR THECAL SAC COMPRESSION.
== END | disposition home or self-care (01) ==
LOC: RADCTMAIN 17:30
PROVIDERS: ATTEND Orthopaedic Surgery
DX: M51.26 Other intervertebral disc displacement, lumbar region (principal); M43.06 Spondylolysis, lumbar region
CPT/HCPCS: 72128; 72131

== ENCOUNTER → 2020-02-20 | Outpatient (CLI) | payer BC ==
[2020-02-20 13:49] VITALS: BP 119/80; PULSE 100; RESP 18; TEMP 98.2
--- NOTE | 2020-02-20 14:21 | P.PAINCN ---
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, the intensity of the pain increased over time, and the pain localized mainly in the low back area and is not radiated to the lower extremity, interfere with the quality of life, patient tried different kind of pain medication, and she tried physical therapy, she tried interventional pain management in [place], and she continued to have severe low back pain, the pain is constant and increases with any activity, she denies any motor or sensory deficit she denies any fever or night sweats which she denies any change in the bowel movements or urination Past Medical History Past Medical History: GERD/Reflux, Osteoarthritis (OA) Additional Past Medical History / Comment(s): restless leg, ulcer, degenerative disks, lower back pain, "prediabetic-diet control", interstitial cystitis, current rx for UTI History of Any Multi-Drug Resistant Organisms: None Reported Past Surgical History: Appendectomy, Breast Surgery, Section, Hysterectomy Additional Past Surgical History / Comment(s): cysts removed ahsan breasts Past Anesthesia/Blood Transfusion Reactions: No Reported Reaction Past Psychological History: No Psychological Hx Reported Smoking Status: Never smoker Past Alcohol Use History: None Reported Past Drug Use History: None Reported - Past Family History Brother(s) Family Medical History: Cancer Medications and Allergies Home Medications Medication Instructions Recorded Confirmed Type Xwmoatn-Rhxa-Qyde [id number] 2 tab PO Q4H PRN 09/03/19 02/20/20 History [Excedrin] QUEtiapine FUMARATE [SEROquel] 400 mg PO HS 09/07/19 02/20/20 History Cipro(Dose Unknown) 1 tab PO BID 02/19/20 02/20/20 History Hydrocodone/Acetaminophen [[place] 1 tab PO TID PRN 02/19/20 02/20/20 History 10-325] clonazePAM [KlonoPIN] 2 mg PO HS 02/19/20 02/20/20 History Allergies Allergy/AdvReac Type Severity Reaction Status Date / Time buckwheat Allergy Diarrhea Verified 02/19/20 09:08 haloperidol Allergy Rapid Verified 02/19/20 09:08 Heart Rate nitrofurantoin Allergy Rash/Hives Verified 02/19/20 09:08 [From Macrobid] prochlorperazine Allergy Rapid Verified 02/19/20 09:08 [From Compazine] Heart Rate wheat Allergy Diarrhea Verified 02/19/20 09:08 Physical Exam Vitals: Vital Signs Temp Pulse Resp BP Pulse Ox 02/20/20 13:45 98.2 F 100 18 119/80 97 Physical Examinations : -Constitutiona : Cooperative , not in acute distress . -HEENT : nech : supple , no Lymphadenopathy , normal thyroid size . : eyes : no ptosis , no icterus, no photophobia . - neurologic : Cranial nerve II to XII intact , no focal neurological deffecit . -psychatric : alert , oriented X 3 , appropriate affect , intact judgment and insight . -Lymphatic : no Lymphadenopathy . - musculoskeltal : Lumber spine moter stegnth lower extremities ,thigh and legs 5/5 Right side , 5/5 Left side deep tendon reflexes : normal Knee Jerk , normal ankle Jerk lumber facet Loading Test =positive Right , posiutive Left Range of motion of the lumbar spine Flexion 30 degrees, extension 10 degrees strait leg raising test = negative bilaterally Fabere test= negative bilaterally tenderness over the Sacroiliac joint on the Right , and Left sides Results Comments: Computed tomography scan of the lumbar spine =lumbar spondylosis Assessment and Plan Plan: Assessment and plan=1-lumbar spondylosis and lumbar facet arthropathy without myelopathy. Patient will be good candidate for diagnostic medial branch block lumbar area at( L4 5 and L5-S1 ) And if she has a good result to proceed with RFA Time with Patient: Greater than 30 PQRS Measure Charge Sheet Measure #130: Documentation of Current Meds in Medical Chart: Patient's medications documented in chart Measure #226: Tobacco Use: Screen & Cessation Intervention: Pt not a tobacco user Measure #111: Pneumonia Vaccination: Pneumococcal vaccine NOT administered or previously given Measure #47: Advance Care Plan: Advance care planning discussed & documented, pt chose/unable to give Measure #412: Opioid Treatment Agreement: No documentation of signed opioid treatment agreement Measure #408: Opioid Therapy Follow-up Evaluation: Patient had NO f/u eval minimum every 3 months during opioid therapy Measure #317: Preventitive Care & Scrn High Bld Press & F/U: Normal blood pressure, f/u not required Measure #128: Body Mass Index (BMI) Screening & Follow-up: BMI documented within normal parameters Measure #131: Pain Assessment & Follow-up: Pain positive & plan documented, Follow-up scheduled Measure #431: Unhealthy Alcohol Use Preventative Care & Scrn: Patient not identified as an unhealthy alcohol user PQRS Narrative: Smoking Status Never smoker Blood Pressure 119/80 Pain Intensity [Lower Back] 6 Scale Used Numeric (1 - 10) Hx Alcohol Use (MH) No Home Medications: Ambulatory Orders Ppcjjpf-Qzpm-Mlwa [id number] [Excedrin] 2 tab PO Q4H PRN 09/03/19 QUEtiapine FUMARATE [SEROquel] 400 mg PO HS 09/07/19 Cipro(Dose Unknown) 1 tab PO BID 02/19/20 Hydrocodone/Acetaminophen [[place] 10-325] 1 tab PO TID PRN 02/19/20 clonazePAM [KlonoPIN] 2 mg PO HS 02/19/20
== END | disposition home or self-care (01) ==
LOC: PNWHC3 13:17
PROVIDERS: ATTEND Specialist
DX: M47.816 Spondylosis without myelopathy or radiculopathy, lumbar region (principal); M19.90 Unspecified osteoarthritis, unspecified site; Z79.82 Long term (current) use of aspirin; Z79.2 Long term (current) use of antibiotics; Z79.891 Long term (current) use of opiate analgesic; Z79.899 Other long term (current) drug therapy; Z91.018 Allergy to other foods; Z88.8 Allergy status to other drugs, medicaments and biological substances; Z88.1 Allergy status to other antibiotic agents
CPT/HCPCS: 99211

== ENCOUNTER 2020-03-25 12:14 | Day surgery (SDC) | payer BC ==
[2020-03-21 17:03] VITALS: BMI 20.9
[2020-03-25 13:01] VITALS: RESP 16; TEMP 98.1
[2020-03-25 13:13] LABS: Glucose,Whole Blood 93 mg/dL (75-99)
[2020-03-25] MEDS ORDERED: LIDOCAINE 1% (10MG/ML) FOR IV START INTRADERMA ONE (13:13)
[2020-03-25] MEDS ORDERED: LACTATED RINGERS 1,000 ML IV ONE (13:13)
[2020-03-25] MEDS ORDERED: MIDAZOLAM 2 MG/2 ML VIAL ONE (13:21)
[2020-03-25] MEDS ORDERED: IOPAMIDOL M200 10 ML VIAL ONE (13:21)
[2020-03-25] MEDS ORDERED: fentaNYL (PF) 50 MCG/ML 2 ML AMP ONE (13:21)
[2020-03-25] MEDS ORDERED: TRIAMCINOLONE ACETONIDE 40 MG/ML 1 ML VIAL ONE (13:21)
[2020-03-25] MEDS ORDERED: ROPIVACAINE 5MG/ML 20ML VIAL ONE (13:21)
--- NOTE | 2020-03-25 13:37 | P.PCN ---
Date of Procedure: 03/25/20 Description of Procedure: PREOPERATIVE DIAGNOSIS : Lumbar spondylosis with Facet Arthropathy without myelopathy POSTOPERATIVE DIAGNOSIS: same PROCEDURE: [first/second] Diagnostic lumbar medial branch block with fluoroscopy at L3, L4, L5 [bilateral] which covers facets L4-5 and L5-S1 ANESTHESIA: Local anesthetic; moderate IV sedation with Versed and fentanyl, sedation time 12 min Fluoroscopy was used for the procedure and images were saved in the radiology portion of the chart. Surgeon: Padilla David MD PROCEDURE INDICATION: Lumbar back pain without radiculopathy, not responsive to conservative management. PROCEDURE DESCRIPTION: the patient was seen and identified in the preop holding area , risks and benefits and possible complications of the procedure and alternatives were discussed with the patient, and the patient agreed to proceed with the procedure and signed the consent . IV was started , vital signs were monitored during the procedure and fluoroscopy was used to maximize the benefit and accuracy of the needle placement, and sedation was given to decrease p atient anxiety. Patient was taken to the procedure room and placed in prone position. The lumbar region was prepped using chlorhexidineX-2. Under strict sterile technique using AP fluoroscopy the bilateral sacral ala were identified and using ipsilateral oblique fluoroscopy ,the junction of the transverse process and the superior articulating process of the L4, L5 vertebra which corresponds to the fluoroscopy image of the eye of the Mike dog for the medial branches were identified. Subsequently, after local infiltration of skin with lidocaine 1% 0.2 mL at each level , a 25-gauge 3.5 Quincke-type needle was placed at the junction of the base of the transverse process and the superior articular process at the appropriate level as well as the sacral ala, and the needle was advanced until the periosteum contacted, needle placement confirmed with AP and oblique fluoroscopy, 0.2 mL of Isovue 200 per level was injected which revealed no vascular uptake and after negative aspiration, 1 mL of a mixture containing 5 mL ropivacaine 0.5% and kenalog 40 mg was injected at each level and the needle subsequently removed . At the end of the procedure and the needles were removed and a bandage applied after the skin was cleaned. The patient was taken to recovery room in stable condition and monitors in the recovery room for 20-30 minutes and discharged home in stable condition after discharge criteria met and patient will follow up for repeat procedure EBL: Minimal COMPLICATION: None.
[2020-03-25] MEDS ORDERED: IV FLUID CONTINUATION 500 ML IV ONE (13:40)
[2020-03-25 14:04] VITALS: BP 109/69; PULSE 82
--- NOTE | 2020-03-25 14:12 | FL ---
Fluoroscopy History: Kang Lumbar Facet Inj 8sec fluoro time,3 images scanned
== END 2020-03-25 14:30 | disposition home or self-care (01) ==
LOC: ORPAIN 12:14
PROVIDERS: ATTEND Anesthesiology
DX: M47.816 Spondylosis without myelopathy or radiculopathy, lumbar region (principal); Z90.710 Acquired absence of both cervix and uterus
CPT/HCPCS: 64493; 64494; J2250; J3301; J3010; Q9966; J2795; 99152

== ENCOUNTER 2020-04-25 10:38 | Day surgery (SDC) | payer BC ==
[2020-04-08 14:40] VITALS: BMI 19.0
[~2020-04-25 10:38] MED LIST: LACTATED RINGERS 1,000 ML IV SCH
[2020-04-25 11:11] VITALS: RESP 16; TEMP 97.6
[2020-04-25] MEDS ORDERED: LIDOCAINE 1% (10MG/ML) FOR IV START INTRADERMA ONE (11:20)
[2020-04-25 11:31] LABS: Glucose,Whole Blood 100 mg/dL (75-99)
[2020-04-25] MEDS ORDERED: MIDAZOLAM 2 MG/2 ML VIAL ONE (12:30)
[2020-04-25] MEDS ORDERED: methylPREDNISolone ACETATE 40 MG/ML 1 ML VIAL ONE (12:30)
[2020-04-25] MEDS ORDERED: ROPIVACAINE 5MG/ML 20ML VIAL ONE (12:30)
[2020-04-25] MEDS ORDERED: fentaNYL (PF) 50 MCG/ML 2 ML AMP ONE (12:30)
--- NOTE | 2020-04-25 12:49 | P.PCN ---
Date of Procedure: 04/25/20 Procedure(s) Performed: PREOPERATIVE DIAGNOSIS : 1- Lumbar spondylosis with Facet Arthropathy without myelopathy . POSTOPERATIVE DIAGNOSIS: 1- Lumbar spondylosis with Facet Arthropathy without myelopathy . PROCEDURE: Diagnostic bilateral L3 , L4 , and L5 medial branch block under fluoroscopy guidance(fluoroscopy images available in the radiology Department ) ( To target the facet joint between L4-5 , and L5-S1 ) ANESTHESIA: Monitored anesthesia care as per anesthesia department. EBL: Minimal COMPLICATION: None PROCEDURE INDICATION: Chronic low back pain secondary to Facet arthropathy unresponsive to conservative treatment. PROCEDURE DESCRIPTION: the patient was seen and identified in the preop holding area , risks and benefits and possible complications of the procedure and alternative were discussed with the patient, and the patient agreed to proceed with the procedure and signed the consent and vital signs monitored during the procedure and fluoroscopy was used to maximize the benefit and accuracy of the needle placement, and sedation was given to decrease patient anxiety, patient was taken to the procedure room and placed in prone position vital signs monitored in the back prepped with chlorhexidine X3 then under strict sterile technique using a right oblique fluoroscopy ,the junction of the transverse process and the superior articulating process of the right L3 , L4 , and L5 vertebra which corresponding to the fluoroscopy image of the eye of the Mike dog on the block side for the medial branches and subsequently , after local infiltration of skin and subcu tissuies with Ropivacaine 0.5 % , one mL at each level ,then 22-gauge Quincke-type needles , 3 needle was used , each one of them placed at the junction of the base of the transverse process and the superior articular process at the appropriate level, and the needle was advanced until the periosteum contacted, needle placement confirmed with AP oblique and lateral view and after appropriate needle placement confirmed, and after negative aspiration for heme and CSF and there was no paresthesia 1-1/2 mL of Ropivacaine 0.5% mixed with 20 mg Depo-Medrol , then half mL injected at each level after negative aspiration the needle subsequently removed and the same procedure repeated for the left side at left side at L3 , L4 and L5 levels. At the end of the procedure and the needles removed and a bandage applied after the skin was cleaned the cleaning solution patient taken to recovery room in stable condition and monitors in the recovery room for 20-30 minutes and discharged home in stable condition after discharge criteria met and patient will follow up with the pain clinic in 2-4 weeks
[2020-04-25 13:08] VITALS: BP 121/84; PULSE 73
[2020-04-25] MEDS ORDERED: IV FLUID CONTINUATION 1,000 ML IV ONE (13:18)
--- NOTE | 2020-04-25 15:18 | FL ---
Fluoroscopy INDICATION: Pain FINDINGS: Fluoroscopy time: 9 seconds. Images obtained: 4. IMPRESSIONS: 1. Documentation of fluoroscopy.
== END 2020-04-25 13:33 | disposition home or self-care (01) ==
LOC: ORPAIN 10:38
PROVIDERS: ATTEND Specialist
DX: G89.29 Other chronic pain (principal); M47.816 Spondylosis without myelopathy or radiculopathy, lumbar region; M06.9 Rheumatoid arthritis, unspecified; G25.81 Restless legs syndrome; Z88.1 Allergy status to other antibiotic agents; Z88.8 Allergy status to other drugs, medicaments and biological substances
CPT/HCPCS: 64493; 64494; J2250; J1030; J3010; J2795

== ENCOUNTER → 2020-05-19 | Outpatient (CLI) | payer BC ==
[2020-05-19 13:59] VITALS: BP 109/76; PULSE 82; RESP 16; TEMP 97.7
--- NOTE | 2020-05-19 14:02 | P.PN ---
Subjective Progress Note Date: 05/19/20 This is a 54-year-old lady with history of chronic axial lower back pain which responded well to a diagnostic lumbar medial branch block by at least 80% of pain relief. The patient denies any bowel or bladder dysfunction or any weakness in the lower extremities. Patient denies new-onset weakness, bowel/bladder incontinence, or any other signs or symptoms of cauda equina syndrome. There are no signs of acute intoxication, and no indications of medication diversion or overuse. In addition to above, 13-point review of systems is also negative for chest pain, shortness of breath, changes in vision, changes in hearing, new onset weakness, abdominal pain, diarrhea, extreme fatigue, malaise, fever, skin changes, homicidal or suicidal ideation, or bowel or bladder incontinence. Vital Signs: Reviewed in EMR Gen: AAOx3, NAD HEENT: PERRLA,hearing grossly normal Pulm: resp unlabored Neck: supple, trachea midline Neuro exam of the lower extremities: Normal muscle strength bilaterally Straight leg raising test: John's test: Range of motion of the lumbar spine: Facet loading test: Positive bilaterally Tenderness in the paravertebral musculature: Neuro: CN II-XII grossly intact, Imaging: Reviewed in EMR/chart Assessment: Lumbar spondylosis without myelopathy Plan: 1. Explanation: Opioid and psychological risk scores were reviewed. Diagnoses, prognoses, and multiple treatment options including but not limited to physical therapy, interventional therapies, adjuvant medical therapies, narcotic medication therapies, and surgery were discussed with the patient and all questions were answered to the patient's satisfaction. 2. Opioid agreement: Signed with the patient and the patient is warned not to use opioids while driving or before driving and not to combine opioids with benzodiazepines or alcohol. 3. Counseling: The patient was counseled extensively on SMOKING CESSATION, BODY MASS INDEX, EXERCISE. Specifically, the patient was instructed regarding the importance of smoking cessation, obesity, and exercise in the context of both chronic pain and overall health. 4. Procedures: Scheduled for bilateral lumbar medial branch RFA for levels L4 5 and L5-S1 under fluoroscopic guidance 5. Consultations: None 6. Investigations: None 7. Medications: None prescribed 8. Disposition: Proceed with the above-mentioned procedure as soon as possible 9. Maps were reviewed and were appropriate. Objective - Vital Signs Vital signs: Vital Signs Temp 97.7 F 05/19/20 13:55 Pulse 82 03/29/21 13:55 Resp 16 05/19/20 13:55 BP 109/76 05/19/20 13:55 Pulse Ox 98 05/19/20 13:55
== END ==
LOC: PNWHC3 13:49
PROVIDERS: ATTEND Anesthesiology
DX: M47.816 Spondylosis without myelopathy or radiculopathy, lumbar region (principal)
CPT/HCPCS: 99211

== ENCOUNTER 2020-06-20 11:40 | Day surgery (SDC) | payer BC ==
[2020-06-18 10:41] VITALS: BMI 19.7
[2020-06-20 12:26] VITALS: TEMP 97.8
[2020-06-20] MEDS ORDERED: LIDOCAINE 1% (10MG/ML) FOR IV START INTRADERMA ONE (12:29)
[2020-06-20] MEDS ORDERED: fentaNYL (PF) 50 MCG/ML 2 ML AMP ONE (12:48)
[2020-06-20] MEDS ORDERED: ROPIVACAINE 5MG/ML 20ML VIAL ONE (12:48)
[2020-06-20] MEDS ORDERED: MIDAZOLAM 2 MG/2 ML VIAL ONE (12:48)
[2020-06-20] MEDS ORDERED: TRIAMCINOLONE ACETONIDE 40 MG/ML 1 ML VIAL ONE (12:48)
--- NOTE | 2020-06-20 13:22 | P.PCN ---
Date of Procedure: 06/20/20 Procedure(s) Performed: PREOPERATIVE DIAGNOSIS: 1-Lumbar Spondylosis with Facet Arthropathy without myelopathy. POSTOPERATIVE DIAGNOSIS: 1- Lumbar Spondylosis with Facet Arthropathy without myelopathy. PROCEDURES : Bilateral Radiofrequency thermocoagulation, L3 , L4 , and L5 medial branch, with fluoroscopic guidance (fluoroscopy images available in the radiology department) ( to denervate the facet joint at L4-5 ,and L5-S1 levels ). ANESTHESIA: Monitored anesthesia care as per anesthesia department EBL: Minimal PROCEDURE INDICATION: The patient with low back pain secondary to lumbar facet arthropathy who had more than 50% relief of her pain with previous diagnostic lumbar medial branch block with bupivacaine. PROCEDURE DESCRIPTION / TECHNIQUE: The patient was seen and identified in the preoperative area. Risks, benefits, complications, including but not limited to risk of infection ,bleeding , allergic reactions to the medications and no complete pain releife , and alternatives were discussed with the patient, the patient agreed to proceed with the procedure and signed the consent. IV was started. Vital signs remained stable throughout the procedure. Patient was taken to the OR and time out was completed. The patient was placed in the prone position on the procedure table. The lumber area was prepped and draped in the usual sterile fashion. . Vital signs were closely monitored during the procedure .IV sedation was used during the procedure to decrease patients anxiety. Using AP and then oblique fluoroscopy, the ``eye of the Mike dog corresponding to the connection between the superior and transverse articular processes of right L3, L4, and L5 were identified, marked, and localized with 1% lidocaine. Subsequently, a 18 [id number] radiofrequency cannula with a 10- mm active tip was advanced guided by fluoroscopy to each of the``eyes of the Mike dog at right L3, L4, and L5. Each site then underwent sensory testing at 50 Hz and 0 to 1 volt and motor testing at 2.5 Hz and 0 to 3 volt with local stimulation, but no radicular symptoms down the legs. Thereafter each sites underwent radiofrequency thermocoagulation at 80 degrees celsius for 90 seconds after injecting 0.5 ml of PF Ropivacaine 1ml, then after the thermocoagulation done , 1 ml of the block solution containing kenalog 20 mg and 3 ml of Ropivacaine 0.5% was injected at the right L3 , L4 , and L5 , levels after negative aspiration of CSF and blood and with no paresthesias. Cannulas were retracted while injecting lidocaine 1% until the needle is out. The same procedure was repeated at the level of Left L3, L4, and L5 levels. At the end of the procedure, the skin was cleansed and bandages were applied. COMPLICATIONS: No acute complications. DISPOSITION / PLANS: The patient was placed in a supine position and transferred to the recovery area in a stable condition for observation and was discharged from the recovery room after meeting discharge criteria. Home discharge instructions given to the patient by the staff. The patient was reexamined prior to discharge. The patient will schedule a follow up in the clinic in 2-4 weeks.
[2020-06-20 13:29] VITALS: RESP 16
--- NOTE | 2020-06-20 13:36 | FL ---
Fluoroscopy History: Rad freq Lumbar RF lumbar. [address] Quiñones.
[2020-06-20] MEDS ORDERED: oxyCODONE-APAP 5-325MG 1 EACH TAB ONE (13:39)
[2020-06-20] MEDS ORDERED: oxyCODONE-APAP 5-325MG 1 EACH TAB PO ONE (13:41)
[2020-06-20 13:46] VITALS: BP 116/82; PULSE 80
[2020-06-20] MEDS ORDERED: IV FLUID CONTINUATION 1,000 ML IV ONE (13:58)
== END 2020-06-20 14:05 | disposition home or self-care (01) ==
LOC: ORPAIN 11:40
PROVIDERS: ATTEND Specialist
DX: M47.816 Spondylosis without myelopathy or radiculopathy, lumbar region (principal); M06.9 Rheumatoid arthritis, unspecified; G25.81 Restless legs syndrome; Z79.899 Other long term (current) drug therapy; Z88.8 Allergy status to other drugs, medicaments and biological substances
CPT/HCPCS: 64635; 64634; J2250; J3301; J3010; J2795

== ENCOUNTER → 2020-07-02 | Outpatient (CLI) | payer BC ==
[2020-07-02 11:37] VITALS: BP 105/70; PULSE 92; RESP 18; TEMP 98.1
--- NOTE | 2020-07-02 12:02 | P.PN ---
Subjective Progress Note Date: 07/02/20 Cornelia is a 54-year-old female presents today for follow-up after having a lumbar radio frequency ablation. She reports she's been having severe pain in the low back after the ablation. She reports she had pain immediately after the procedure and is slowly getting a little bit better. She's been using ov [id number] medications, opioid medications with some relief. She seen a primary care physician gave her a few days and [place]. She describes the pain as sharp pain with activity and movement in the low back. There is no radiation to her legs. There is no bowel or bladder incontinence. She does not hear as or chills or night sweats. She reports the back pain is a stabbing sensation with activity only. She is okay at rest. Objective - Vital Signs Vital signs: Vital Signs Temp 98.1 F 07/02/20 11:33 Pulse 92 07/02/20 11:33 Resp 18 07/02/20 11:33 BP 105/70 07/02/20 11:33 Pulse Ox 96 07/02/20 11:33 Intake & Output 07/01/20 07/02/20 07/02/20 18:59 06:59 18:59 Weight 51.71 kg - Exam PHYSICAL EXAM: Constitutional: Awake and alert no distress Cardiovascular exam: Regular rate, no lower extremity edema, palpable pulses bilaterally Respiratory exam: No audible wheezing, no accessory muscle usage Abdominal exam: Soft nontender Muscular skeletal exam: - Lumbar spine: Preserved lumbar lordosis. No changes in skin. Nontender palpation bilateral. Patient has full range of motion in flexion and extension as well as lateral sidebending. Straight leg raise is negative. Facet loading is negative. Nontender over the SI joints. There is no erythema or fluctuance of the skin. Neuro exam: Normal sensation bilateral upper and lower extremities. Deep tendon reflexes are 2+ bilaterally. Ortez's is negative Psychiatric exam: Cooperative, good insight Assessment and Plan Assessment: #1 lumbar spondylosis without myelopathy #2 postprocedural pain. Plan: I have explained to the patient that there are no signs of any infection. I believe she is having muscle spasms. She appears to have had 18-gauge radiofrequency cannula was which may have caused some spasming in the lumbar spine paraspinal muscles given the size of the patient. Nonetheless is not unusual to use 18-gauge needles. I discussed with the patient that I believe that she is having muscle spasms, I will prescribe Robaxin 750 simon grams twice a day as needed should not make her drowsy as she is working. She works as a respiratory therapist. I have also prescribed her 3 days of hydrocodone 10 mg to be used as needed. I will also give her a Medrol Dosepak to be used over the next 5 days. She can follow up as needed or if she continues to have any issues. I have spent 19 minutes on patient care today. The time was used to review the medical records including relevant urine studies and Prescription history (MAPs), review of the available imaging, evaluation and examination of the patient, coordination of care with the medical staff and if applicable referring physicians, as well as creation of the medical record. Maps were checked and appropriate, opioid start talking form is on file and updated, urine drug screens of been appropriate and have been reviewed.
== END ==
LOC: PNWHC3 11:29
PROVIDERS: ATTEND Hospitalist
DX: G89.18 Other acute postprocedural pain (principal); M47.816 Spondylosis without myelopathy or radiculopathy, lumbar region
CPT/HCPCS: 99211

== ENCOUNTER 2020-07-17 06:06 | Observation (INO) | payer BC ==
[2020-07-17] MEDS ORDERED: KETOROLAC 15 MG/ML 1 ML VIAL IVP STA (06:23)
[2020-07-17] MEDS ORDERED: ONDANSETRON 4 MG/2 ML VIAL IVP STA (06:23)
[2020-07-17] MEDS ORDERED: HYDROmorphone 0.5 MG/0.5 ML SYRINGE IVP STA (06:23)
[2020-07-17] MEDS ORDERED: SODIUM CHLORIDE 0.9% 1,000 ML IV STA (06:23)
[2020-07-17] MEDS ORDERED: SODIUM CHLORIDE 0.9% 500 ML 500 ML IV STA (06:23)
--- NOTE | 2020-07-17 06:26 | ED ---
General Adult HPI - General Chief complaint: Urogenital Stated complaint: Fever Time Seen by Provider: 07/17/20 06:15 Source: patient, RN notes reviewed Mode of arrival: ambulatory Limitations: no limitations - History of Present Illness Initial comments: This a 54-year-old female presents emergency Department chief complaint of fever, flank pain, dysuria. Patient states that she's had symptoms since earlier this week she did see her PCP who placed her on some Bactrim. Patient states that has not helped and states the pain has increased redness of this morning. She states she has bilateral flank pain, right-sided abdominal pain. She did have prior appendectomy with slight nausea no vomiting. Denies any vaginal bleeding or vaginal discharge no chest pain or shortness breath no cough or cold-like symptoms. - Related Data Home Medications Medication Instructions Recorded Confirmed [id number] 2 tab PO Q4H PRN 09/03/19 07/02/20 [Excedrin] QUEtiapine FUMARATE [SEROquel] 400 mg PO HS 09/07/19 07/02/20 Hydrocodone/Acetaminophen [Gifford 1 tab PO Q6H PRN 02/19/20 07/02/20 10-325] clonazePAM [KlonoPIN] 2 mg PO HS 02/19/20 07/02/20 Cholecalciferol [Vitamin D3 (25 50 mcg PO DAILY 03/21/20 07/02/20 Mcg = 1000 Iu)] L.acidoph,Paracasei, B.lactis 1 each PO DAILY 03/21/20 07/02/20 [Probiotic] Multivitamins, Thera [Multivitamin 1 tab PO DAILY 03/21/20 07/02/20 (formulary)] bisacodyL [Dulcolax] 5 mg PO DAILY PRN 03/21/20 07/02/20 Previous Rx's Medication Instructions Recorded HYDROcodone/APAP 10-325MG [Gifford 1 tab PO Q8H PRN 3 Days #12 tab 07/02/20 10-325] Methocarbamol [Robaxin-750] 750 mg PO Q12HR PRN 30 Days #60 07/02/20 tablet methylPREDNISolone Dose Pack 4 mg PO DIRECTED #21 package 07/02/20 [Medrol Dose Pack] HYDROcodone/APAP 10-325MG [Gifford 1 tab PO Q4HR PRN 30 Days #60 tab 07/07/20 10325] Allergies Allergy/AdvReac Type Severity Reaction Status Date / Time buckwheat Allergy Diarrhea Verified 07/17/20 06:12 haloperidol Allergy Rapid Verified 07/17/20 06:12 Heart Rate nitrofurantoin Allergy Rash/Hives Verified 07/17/20 06:12 [From Macrobid] prochlorperazine Allergy Rapid Verified 07/17/20 06:12 [From Compazine] Heart Rate wheat Allergy Diarrhea Verified 07/17/20 06:12 Review of Systems ROS Statement: Those systems with pertinent positive or pertinent negative responses have been documented in the HPI. ROS Other: All systems not noted in ROS Statement are negative. Past Medical History Past Medical History: Rheumatoid Arthritis (RA) Additional Past Medical History / Comment(s): RLS, back pain, scoliosis, lumbar spondylosis & facet arthropathy. "Pre-diabetic" - diet controlled. Freq UTI. History of Any Multi-Drug Resistant Organisms: None Reported Past Surgical History: Appendectomy, Breast Surgery, Section, Hy sterectomy Additional Past Surgical History / Comment(s): C-S x2. Rt ovarian cyst exc. Benign cysts removed from bilat breasts. Pain procedures. Past Anesthesia/Blood Transfusion Reactions: No Reported Reaction Past Psychological History: Anxiety Smoking Status: Never smoker Past Alcohol Use History: None Reported Past Drug Use History: None Reported - Past Family History Brother(s) Family Medical History: Cancer General Exam Limitations: no limitations General appearance: alert, in no apparent distress Head exam: Present: atraumatic, normocephalic, normal inspection Eye exam: Present: normal appearance, PERRL, EOMI. Absent: scleral icterus, conjunctival injection, periorbital swelling Respiratory exam: Present: normal lung sounds bilaterally. Absent: respiratory distress, wheezes, rales, rhonchi, stridor Cardiovascular Exam: Present: normal rhythm, tachycardia, normal heart sounds. Absent: systolic murmur, diastolic murmur, rubs, gallop, clicks GI/Abdominal exam: Present: soft, tenderness (Mild suprapubic to right sided), normal bowel sounds. Absent: distended, guarding, rebound, rigid Back exam: Present: CVA tenderness (R), CVA tenderness (L) Neurological exam: Present: alert Skin exam: Present: warm, dry, intact, normal color. Absent: rash Course Vital Signs 07/17/20 07/17/20 06:09 08:18 Temperature 98.0 F Pulse Rate 133 H 90 Respiratory 16 18 Rate Blood Pressure 127/86 127/87 O2 Sat by Pulse 97 97 Oximetry Medical Decision Making - Medical Decision Making CT shows evidence of abnormal inflammation, fluid collection inflammatory changes surrounding the duodenum, gastric region case discussed with Dr. Jeanette Chatman consults could be from peptic ulcer disease question infection. Patient will be admitted for further evaluation. - Lab Data Result diagrams: 07/17/20 06:27 07/17/20 06:27 Lab Results 07/17/20 07/17/20 07/17/20 Range/Units 06: 06: 06:27 WBC 9.8 (3.8-10.6) k/uL RBC 4.17 (3.80-5.40) m/uL Hgb 12.8 (11.4-16.0) gm/dL Hct 38.1 (34.0-46.0) % MCV 91.2 (80.0-100.0) fL MCH 30.6 (25.0-35.0) pg MCHC 33.6 (31.0-37.0) g/dL RDW 13.1 (11.5-15.5) % Plt Count 313 (150-450) k/uL MPV 7.0 Neutrophils % 50 % Lymphocytes % 38 % Monocytes % 7 % Eosinophils % 2 % Basophils % 1 % Neutrophils # 5.0 (1.3-7.7) k/uL Lymphocytes # 3.8 (1.0-4.8) k/uL Monocytes # 0.7 (0-1.0) k/uL Eosinophils # 0.2 (0-0.7) k/uL Basophils # 0.1 (0-0.2) k/uL Sodium 138 (137-145) mmol/L Potassium 3.8 (3.5-5.1) mmol/L Chloride 104 (98-107) mmol/L Carbon Dioxide 23 (22-30) mmol/L Anion Gap 11 mmol/L BUN 19 H (7-17) mg/dL Creatinine 0.79 (0.52-1.04) mg/dL Est GFR (CKD-EPI)AfAm >90 (>60 ml/min/1.73 sqM) Est GFR (CKD-EPI)NonAf 86 (>60 ml/min/1.73 sqM) Glucose 126 H (74-99) mg/dL Plasma Lactic Acid Aaron 2.0 (0.7-2.0) mmol/L Calcium 9.6 (8.4-10.2) mg/dL Total Bilirubin 0.4 (0.2-1.3) mg/dL AST 20 (14-36) U/L ALT 9 (4-34) U/L Alkaline Phosphatase 77 (38-126) U/L Total Protein 7.0 (6.3-8.2) g/dL Albumin 4.5 (3.5-5.0) g/dL Urine Color Urine Appearance (Clear) Urine pH (5.0-8.0) Ur Specific [place] (1.001-1.035) Urine Protein (Negative) Urine Glucose (UA) (Negative) Urine Ketones (Negative) Urine Blood (Negative) Urine Nitrite (Negative) Urine Bilirubin (Negative) Urine Urobilinogen (<2.0) mg/dL Ur Leukocyte Esterase (Negative) 07/17/20 Range/Units 08:00 WBC (3.8-10.6) k/uL RBC (3.80-5.40) m/uL Hgb (11.4-16.0) gm/dL Hct (34.0-46.0) % MCV (80.0-100.0) fL MCH (25.0-35.0) pg MCHC (31.0-37.0) g/dL RDW (11.5-15.5) % Plt Count (150-450) k/uL MPV Neutrophils % % Lymphocytes % % Monocytes % % Eosinophils % % Basophils % % Neutrophils # (1.3-7.7) k/uL Lymphocytes # (1.0-4.8) k/uL Monocytes # (0-1.0) k/uL Eosinophils # (0-0.7) k/uL Basophils # (0-0.2) k/uL Sodium (137-145) mmol/L Potassium (3.5-5.1) mmol/L Chloride (98-107) mmol/L Carbon Dioxide (22-30) mmol/L Anion Gap mmol/L BUN (7-17) mg/dL Creatinine (0.52-1.04) mg/dL Est GFR (CKD-EPI)AfAm (>60 ml/min/1.73 sqM) Est GFR (CKD-EPI)NonAf (>60 ml/min/1.73 sqM) Glucose (74-99) mg/dL Plasma Lactic Acid Aaron (0.7-2.0) mmol/L Calcium (8.4-10.2) mg/dL Total Bilirubin (0.2-1.3) mg/dL AST (14-36) U/L ALT (4-34) U/L Alkaline Phosphatase (38-126) U/L Total Protein (6.3-8.2) g/dL Albumin (3.5-5.0) g/dL Urine Color Light Yellow Urine Appearance Clear (Clear) Urine pH 6.5 (5.0-8.0) Ur Specific [place] 1.010 (1.001-1.035) Urine Protein Negative (Negative) Urine Glucose (UA) Negative (Negative) Urine Ketones Negative (Negative) Urine Blood Negative (Negative) Urine Nitrite Negative (Negative) Urine Bilirubin Negative (Negative) Urine Urobilinogen <2.0 (<2.0) mg/dL Ur Leukocyte Esterase Negative (Negative) Disposition Clinical Impression: Abdominal pain, Peptic ulcer disease, Duodenitis Disposition: ADMITTED IP TO THIS [facility] Condition: Fair Referrals: Diana Guerra MD [Primary Care Provider] - 1-2 days
[2020-07-17 06:57] LABS: Basophils # (A) 0.1 k/uL (0-0.2); Basophils % (A) 1 %; Eosinophils # (A) 0.2 k/uL (0-0.7); Eosinophils % (A) 2 %; HCT 38.1 % (34.0-46.0); HGB 12.8 gm/dL (11.4-16.0); Lymphocytes # (A) 3.8 k/uL (1.0-4.8); Lymphocytes % (A) 38 %; MCH 30.6 pg (25.0-35.0); MCHC 33.6 g/dL (31.0-37.0); MCV 91.2 fL (80.0-100.0); Monocytes # (A) 0.7 k/uL (0-1.0); Monocytes % (A) 7 %; Neutrophils % (A) 50 %; Platelet Count 313 k/uL (150-450); RBC 4.17 m/uL (3.80-5.40); RDW 13.1 % (11.5-15.5); WBC 9.8 k/uL (3.8-10.6)
[2020-07-17 07:28] LABS: ALT 9 U/L (4-34); AST 20 U/L (14-36); African American GFR (CKD) >90 (>60 ml/min/1.73 sqM); Albumin 4.5 g/dL (3.5-5.0); Alkaline Phosphatase 77 U/L (38-126); Anion Gap 11 mmol/L; Blood Urea Nitrogen 19 mg/dL (7-17); Calcium 9.6 mg/dL (8.4-10.2); Carbon Dioxide 23 mmol/L (22-30); Chloride 104 mmol/L (98-107); Glucose 126 mg/dL (74-99); Non-African American GFR(CKD) 86 (>60 ml/min/1.73 sqM); Potassium 3.8 mmol/L (3.5-5.1); Sodium 138 mmol/L (137-145); Total Bilirubin 0.4 mg/dL (0.2-1.3)
[2020-07-17 08:29] LABS: Appearance,Urine Clear (Clear); Bilirubin,Urine Negative (Negative); Blood,Urine Negative (Negative); Color,Urine Light Yellow; Glucose,Urine (UA) Negative (Negative); Ketones,Urine Negative (Negative); Leukocyte Esterase,Urine Negative (Negative); Nitrite,Urine Negative (Negative); PH, Urine 6.5 (5.0-8.0); Protein,Urine Negative (Negative); Urobilinogen,Urine <2.0 mg/dL (<2.0)
--- NOTE | 2020-07-17 09:25 | CT ---
EXAMINATION TYPE: CT abdomen pelvis w con DATE OF EXAM: 07/17/2020 HISTORY: Rt sided pain CT DLP: 479.7mGycm Automated Exposure Control for Dose Reduction was Utilized. CONTRAST: CT scan of the abdomen and pelvis is performed without oral but with IV Contrast, patient injected wi th 100 mL of Isovue 300. COMPARISON: None. FINDINGS: LUNG BASES: No significant abnormality is appreciated. LIVER/GB: No CT dense intraluminal gallstones. Slightly distended margins. Ill-defined fluid and fat stranding along the deep margin extends centrally. Common bile duct measures 6 mm no mary hepatis an d distally near duodenal ampulla. Double duct sign without obstructing mass or calculus. PANCREAS: Pancreatic duct is seen but not suspiciously dilated SPLEEN: No significant abnormality is seen. ADRENALS: No significant abnormality is seen. KIDNEYS: No significant abnormality is seen. BOWEL: Low lying cecum into the anterior pelvis. Suboptimal evaluation of bowel without enteric contr ast. Suggestion of mild to moderate wall thickening and abnormal mucosal enhancement in the gastric a ntrum ill-defined fluid and fat stranding at this level extends to level mary hepatis. There are pro minent but adjacent subcentimeter lymph nodes. There is mass effect on the pancreatic head which is p ushed to left of midline. UTERUS/ADNEXA: No gross abnormality seen. LYMPH NODES: Prominent lymph nodes in the upper to mid abdomen near gastroduodenal junction and gallb ladder for reference slightly enlarged 1.6 x 1.1 cm lymph node seen. OSSEOUS STRUCTURES: Posterior disc herniation L4-L5 level with facet arthropathy, effacement anterior thecal sac sagittal image 56 and axial image 42 . Bilateral pars defect L5 level without spondylolis thesis. OTHER: No significant additional abnormality is seen. IMPRESSION: Abnormal inflammatory change as detailed above. Correlate for distal moderate to severe g astritis and/or duodenitis. Suspect adjacent reactive change with abnormal adenopathy extending to in volve the gallbladder. Acute cholecystitis less likely but not entirely excluded.
[2020-07-17] MEDS ORDERED: PANTOPRAZOLE 40 MG/10 ML VIAL IVP STA (09:55)
[2020-07-17] MEDS ORDERED: NALOXONE 0.4 MG/ML 1 ML VIAL IV PRN (09:56)
[2020-07-17] MEDS ORDERED: PIPERACILLIN-TAZOBACTAM 3.375 GM in SODIUM CHLORIDE 0.9% 100 ML IVPB STA (09:56)
[2020-07-17 10:31] LABS: Amylase 95 U/L (30-110)
[2020-07-17 10:32] LABS: Lipase 356 U/L (23-300)
[2020-07-17] MEDS: SODIUM CHLORIDE 0.9% 1,000 ML IV SCH ×2 (10:33→22:14)
[2020-07-17] MEDS: HYDROmorphone 0.5 MG/0.5 ML SYRINGE IVP PRN ×5 (10:37→22:13)
--- NOTE | 2020-07-17 11:34 | P.HPIM ---
History of Present Illness H&P Date: 07/17/20 Chief Complaint: Abdominal pain This is a 54-year-old female with past medical history noted below significant for history of peptic ulcer disease that presented to the emergency room with abdominal pain. Patient said that her pain started 2 days ago and is being getting progressively worse. She described the pain as severe and mostly in the epigastric area. At times her pain is 10 out of 10. Pain is associated with nausea but no vomiting. Patient said that she's been constipated for the last couple of days but prior to that she was having bowel movement normal. She denies any blood in her stool or black stool. Patient denies alcohol and NSAIDs use. Patient said that 3 years ago when she was still living in [place] she underwent an EGD showing a gastric ulcer but was not told that she has any sort of infection was not treated with antibiotic. Later on she had a repeat EGD and was told that her ulcer is healing. 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 Patient was seen by me in the ED. She appeared relatively comfortable. Her pain has improved. Review of Systems Review of system: 14 points review of systems were obtained and were negative except to what were mentioned in the HPI. Past Medical History Past Medical History: Rheumatoid Arthritis (RA) Additional Past Medical History / Comment(s): RLS, back pain, scoliosis, lumbar spondylosis & facet arthropathy. "Pre-diabetic" - diet controlled. Freq UTI. History of Any Multi-Drug Resistant Organisms: None Reported Past Surgical History: Appendectomy, Breast Surgery, Section, Hysterectomy Additional Past Surgical History / Comment(s): C-S x2. Rt ovarian cyst exc. Benign cysts removed from bilat breasts. Pain procedures. Past Anesthesia/Blood Transfusion Reactions: No Reported Reaction Past Psychological History: Anxiety Smoking Status: Never smoker Past Alcohol Use History: None Reported Past Drug Use History: None Reported - Past Family History Brother(s) Family Medical History: Cancer Medications and Allergies Home Medications Medication Instructions Recorded Confirmed Type QUEtiapine FUMARATE [SEROquel] 400 mg PO HS 09/07/19 07/17/20 History Hydrocodone/Acetaminophen [Rosser 1 tab PO Q6H PRN 02/19/20 07/17/20 History 10-325] clonazePAM [KlonoPIN] 2 mg PO HS 02/19/20 07/17/20 History L.acidoph,Paracasei, B.lactis 1 cap PO DAILY 03/21/20 07/17/20 History [Probiotic] Multivitamins, Thera [Multivitamin 1 tab PO DAILY 03/21/20 07/17/20 History (formulary)] bisacodyL [Dulcolax] 5 mg PO DAILY PRN 03/21/20 07/17/20 History DULoxetine HCL [Cymbalta] 30 mg PO BID 07/17/20 07/17/20 History Allergies Allergy/AdvReac Type Severity Reaction Status Date / Time nitrofurantoin Allergy Rash/Hives Verified 07/17/20 10:15 [From Macrobid] buckwheat AdvReac Diarrhea Verified 07/17/20 10:15 haloperidol AdvReac Rapid Verified 07/17/20 10:15 Heart Rate prochlorperazine AdvReac Rapid Verified 07/17/20 10:15 [From Compazine] Heart Rate wheat AdvReac Diarrhea Verified 07/17/20 10:15 Physical Exam Vitals: Vital Signs Temp Pulse Resp BP Pulse Ox 07/17/20 08:18 90 18 127/87 97 07/17/20 06:09 98.0 F 133 H 16 127/86 97 Intake and Output 07/16/20 07/17/20 07/17/20 22:59 06:59 14:59 Other: Voiding Method Toilet Weight 51.029 kg General: The patient is awake and alert, in no distress Eye: there is normal conjunctiva bilaterally. Neck: The neck is supple, there is no JVD. Cardiovascular: Normal S1-S2, no S3-S4, no murmurs. Respiratory: Lungs clear to auscultation bilaterally Gastrointestinal: Abdomen is soft, there is moderate tenderness to palpation in the epigastric area Musculoskeletal: There is no pedal edema. Neurological:. Speech is normal. Skin: Skin is warm and dry Results CBC & Chem 7: 07/17/20 06:27 07/17/20 06:27 Labs: Abnormal Lab Results - Last 24 Hours (Table) 07/17/20 07/17/20 Range/Units 06: 06: BUN 19 H (7-17) mg/dL Glucose 126 H (74-99) mg/dL Lipase 356 H (23-300) U/L Assessment and Plan Assessment: 1. Suspected gastric ulcer, with evidence of moderate wall thickening and abn ormal mucosal enhancement in the gastric antrum noted on CT. Patient was started on IV Protonix 40 mg twice daily. Gen. surgery consulted for further evaluation. We'll continue IV fluid hydration and pain control. Zofran as needed for nausea. 2. Chronic medical problems, underlying depression and anxiety Today, I reviewed her medication list, computed tomography scan reports, and lab work results. We will continue current regimen. Awaiting general surgery evaluation. Keep patient nothing by mouth for possible EGD. Lipase only slightly elevated and does not indicate acute pancreatitis.
--- NOTE | 2020-07-17 15:58 | P.GSCN ---
History of Present Illness Consult date: 07/17/20 Reason for Consult: Abdominal pain History of present illness: 54-year-old presents with complaints of upper abdominal pain. Pain radiates to the back. It is been there for the last month but has been increasing in severity. Yesterday around 1:00 she noticed a significant increase in her discomfort. Pain radiates to the lower midabdomen. She has been nauseated. No vomiting. She says she did have a fever of 100.4 yesterday at home. History of previous ulcer in the past 2 years ago. She was told after they re-scope her that the ulcer did not heal appropriately. Denies rectal bleeding or melena. No significant NSAID use or alcohol use. Patient without history of previous pancreatitis. Amylase is normal. Lipase is slightly elevated. Some constipation lately. CAT scan was performed which shows thickening of the wall of the duodenum and pyloric region with a small amount of fluid in that area. Patient was tachycardic on arrival but that has normalized. Her white blood cell count is normal. Review of Systems The patient denies any acute changes in vision or hearing, no dysphagia or odyno phagia, no chest pain or shortness of breath, no dysuria or hematuria, no headache, no runny nose, no rectal bleeding or melena, no unexplained weight loss Past Medical History Past Medical History: Rheumatoid Arthritis (RA) Additional Past Medical History / Comment(s): RLS, back pain, scoliosis, lumbar spondylosis & facet arthropathy. "Pre-diabetic" - diet controlled. Freq UTI. History of Any Multi-Drug Resistant Organisms: None Reported Past Surgical History: Appendectomy, Breast Surgery, Section, Hysterectomy Additional Past Surgical History / Comment(s): C-S x2. Rt ovarian cyst exc. Benign cysts removed from bilat breasts. Pain procedures. Past Anesthesia/Blood Transfusion Reactions: No Reported Reaction Past Psychological History: Anxiety Smoking Status: Never smoker Past Alcohol Use History: None Reported Past Drug Use History: None Reported - Past Family History Brother(s) Family Medical History: Cancer Medications and Allergies Home Medications Medication Instructions Recorded Confirmed Type QUEtiapine FUMARATE [SEROquel] 400 mg PO HS 09/07/19 07/17/20 History Hydrocodone/Acetaminophen [[place] 1 tab PO Q6H PRN 02/19/20 07/17/20 History 10-325] clonazePAM [KlonoPIN] 2 mg PO HS 02/19/20 07/17/20 History L.acidoph,Paracasei, B.lactis 1 cap PO DAILY 03/21/20 07/17/20 History [Probiotic] Multivitamins, Thera [Multivitamin 1 tab PO DAILY 03/21/20 07/17/20 History (formulary)] bisacodyL [Dulcolax] 5 mg PO DAILY PRN 03/21/20 07/17/20 History DULoxetine HCL [Cymbalta] 30 mg PO BID 07/17/20 07/17/20 History Allergies Allergy/AdvReac Type Severity Reaction Status Date / Time nitrofurantoin Allergy Rash/Hives Verified 07/17/20 10:15 [From Macrobid] buckwheat AdvReac Diarrhea Verified 07/17/20 10:15 haloperidol AdvReac Rapid Verified 07/17/20 10:15 Heart Rate prochlorperazine AdvReac Rapid Verified 07/17/20 10:15 [From Compazine] Heart Rate wheat AdvReac Diarrhea Verified 07/17/20 10:15 Surgical - Exam Vital Signs Temp Pulse Resp BP Pulse Ox 98.0 F 133 H 16 127/86 97 07/17/20 06:09 07/17/20 06:09 07/17/20 06:09 07/17/20 06:09 07/17/20 06:09 Physical exam: General: Well-developed, well-nourished HEENT: Normocephalic, sclerae nonicteric Abdomen: Mild to moderate upper abdominal tenderness without rebound or guarding, nondistended Extremities: No edema Neuro: Alert and oriented Results - Labs 07/17/20 06:27 07/17/20 06:27 Abnormal Lab Results - Last 24 Hours (Table) 07/17/20 07/17/20 Range/Units 06:27 06:27 BUN 19 H (7-17) mg/dL Glucose 126 H (74-99) mg/dL Lipase 356 H (23-300) U/L Diabetes panel 07/17/20 Range/Units 06:27 Sodium 138 (137-145) mmol/L Potassium 3.8 (3.5-5.1) mmol/L Chloride 104 (98-107) mmol/L Carbon Dioxide 23 (22-30) mmol/L BUN 19 H (7-17) mg/dL Creatinine 0.79 (0.52-1.04) mg/dL Glucose 126 H (74-99) mg/dL Calcium 9.6 (8.4-10.2) mg/dL AST 20 (14-36) U/L ALT 9 (4-34) U/L Alkaline Phosphatase 77 (38-126) U/L Total Protein 7.0 (6.3-8.2) g/dL Albumin 4.5 (3.5-5.0) g/dL Calcium panel 07/17/20 Range/Units 06:27 Calcium 9.6 (8.4-10.2) mg/dL Albumin 4.5 (3.5-5.0) g/dL Pituitary panel 07/17/20 Range/Units 06:27 Sodium 138 (137-145) mmol/L Potassium 3.8 (3.5-5.1) mmol/L Chloride 104 (98-107) mmol/L Carbon Dioxide 23 (22-30) mmol/L BUN 19 H (7-17) mg/dL Creatinine 0.79 (0.52-1.04) mg/dL Glucose 126 H (74-99) mg/dL Calcium 9.6 (8.4-10.2) mg/dL Adrenal panel 07/17/20 Range/Units 06:27 Sodium 138 (137-145) mmol/L Potassium 3.8 (3.5-5.1) mmol/L Chloride 104 (98-107) mmol/L Carbon Dioxide 23 (22-30) mmol/L BUN 19 H (7-17) mg/dL Creatinine 0.79 (0.52-1.04) mg/dL Glucose 126 H (74-99) mg/dL Calcium 9.6 (8.4-10.2) mg/dL Total Bilirubin 0.4 (0.2-1.3) mg/dL AST 20 (14-36) U/L ALT 9 (4-34) U/L Alkaline Phosphatase 77 (38-126) U/L Total Protein 7.0 (6.3-8.2) g/dL Albumin 4.5 (3.5-5.0) g/dL Assessment and Plan (1) Abdominal pain Narrative/Plan: 54-year-old female with complaints of epigastric abdominal pain. CAT scan findings and history suggest the possibility of complicated ulcer disease. Keep nothing by mouth for now. Continue aggressive antacid therapy. We will eventually plan upper endoscopy but would not proceed with upper endoscopy in the next few days. We'll repeat abdominal films tomorrow morning to evaluate for pneumoperitoneum. Continue antibiotic therapy. We'll follow closely. Current Visit: Yes Status: Acute Code(s): R10.9 - UNSPECIFIED ABDOMINAL PAIN SNOMED Code(s): 96075783
[2020-07-17] MEDS ORDERED: PIPERACILLIN-TAZOBACTAM 3.375 GM in SODIUM CHLORIDE 0.9% 100 ML IVPB SCH (16:00)
[2020-07-17] MEDS: PIPERACILLIN-TAZOBACTAM 3.375 GM in SODIUM CHLORIDE 0.9% 100 ML IVPB SCH (17:42)
[2020-07-17] MEDS: PANTOPRAZOLE 40 MG/10 ML VIAL IV SCH (20:14)
[2020-07-17] MEDS: clonazePAM 1 MG TAB PO SCH (20:15)
[2020-07-17] MEDS: QUEtiapine 200 MG TAB PO SCH (20:15)
[2020-07-17] MEDS: DULoxetine HCL 30 MG CAPSULE.DR PO SCH (20:15)
[2020-07-18] MEDS: PIPERACILLIN-TAZOBACTAM 3.375 GM in SODIUM CHLORIDE 0.9% 100 ML IVPB SCH ×2 (02:43→08:20)
[2020-07-18] MEDS: HYDROmorphone 0.5 MG/0.5 ML SYRINGE IVP PRN ×6 (02:47→21:00)
[2020-07-18 03:53] LABS: Basophils # (A) 0.1 k/uL (0-0.2); Basophils % (A) 1 %; Eosinophils # (A) 0.2 k/uL (0-0.7); Eosinophils % (A) 4 %; HCT 31.4 % (34.0-46.0); HGB 10.3 gm/dL (11.4-16.0); Lymphocytes # (A) 2.8 k/uL (1.0-4.8); Lymphocytes % (A) 48 %; MCH 30.9 pg (25.0-35.0); MCHC 32.9 g/dL (31.0-37.0); MCV 93.9 fL (80.0-100.0); Mean Platelet Volume 7.3; Monocytes # (A) 0.3 k/uL (0-1.0); Monocytes % (A) 6 %; Neutrophils # (A) 2.3 k/uL (1.3-7.7); Neutrophils % (A) 39 %; Platelet Count 221 k/uL (150-450); RBC 3.35 m/uL (3.80-5.40); RDW 13.1 % (11.5-15.5); WBC 5.9 k/uL (3.8-10.6)
[2020-07-18 04:02] LABS: ALT 6 U/L (4-34); AST 17 U/L (14-36); African American GFR (CKD) >90 (>60 ml/min/1.73 sqM); Albumin 3.2 g/dL (3.5-5.0); Alkaline Phosphatase 60 U/L (38-126); Anion Gap 7 mmol/L; Blood Urea Nitrogen 13 mg/dL (7-17); Calcium 8.8 mg/dL (8.4-10.2); Carbon Dioxide 20 mmol/L (22-30); Chloride 112 mmol/L (98-107); Glucose 68 mg/dL (74-99); Non-African American GFR(CKD) >90 (>60 ml/min/1.73 sqM); Potassium 3.7 mmol/L (3.5-5.1); Sodium 139 mmol/L (137-145); Total Bilirubin 0.2 mg/dL (0.2-1.3); Total Protein 5.3 g/dL (6.3-8.2)
[2020-07-18 08:11] LABS: Amylase 53 U/L (30-110); Lipase 48 U/L (23-300)
[2020-07-18] MEDS: PANTOPRAZOLE 40 MG/10 ML VIAL IV SCH ×2 (08:21→20:46)
[2020-07-18] MEDS: DULoxetine HCL 30 MG CAPSULE.DR PO SCH ×2 (08:22→20:46)
[2020-07-18] MEDS: ONDANSETRON 4 MG/2 ML VIAL IVP PRN (08:22)
[2020-07-18] MEDS: DEXTROSE 5%-0.45% NACL 1,000 ML IV SCH ×2 (08:25→18:12)
--- NOTE | 2020-07-18 11:12 | P.PN ---
Subjective Progress Note Date: 07/18/20 Patient is feeling slightly better compared to yesterday. She told me that she still requiring Dilaudid around the clock. She continued to have nausea but no vomiting. She is nothing by mouth. Abdominal x-ray ordered for this morning is not done as of yet. I also discussed with the patient her recent urine culture that grew ESBL. Patient told me that she was having urinary symptoms and a urine sample was sent to the lab by her PCP. Culture was not back at the time and patient was treated with Bactrim. She denies having any history of ESBL or other resistant bacteria. She said that in the past she had recurrent UTIs and that hasn't been a problem in the last couple of years. Objective - Vital Signs Vital signs: Vital Signs Temp 97.9 F 07/18/20 08:29 Pulse 109 H 07/18/20 08:30 Resp 18 07/18/20 08:29 BP 94/64 07/18/20 02:45 Pulse Ox 95 07/18/20 08:29 Intake & Output 07/17/20 07/18/20 07/18/20 18:59 06:59 18:59 Intake Total 850 Balance 850 Weight 50.9 kg Intake: Intake, IV Titration 850 Amount Piperacillin-Tazobactam 3 100 .375 gm In Sodium Chloride 0.9% 100 ml @ 25 mls/hr IVPB Q8H [facility] Rx#: [id number] Sodium Chloride 0.9% 1, 750 000 ml @ 75 mls/hr IV . [id number] [facility] Rx#:[id number] Other: # Voids 1 3 1 - Exam General: The patient is awake and alert, in no distress Eye: there is normal conjunctiva bilaterally. Neck: The neck is supple, there is no JVD. Cardiovascular: Normal S1-S2, no S3-S4, no murmurs. Respiratory: Lungs clear to auscultation bilaterally Gastrointestinal: Abdomen is soft, there is moderate tenderness to palpation in the epigastric area Musculoskeletal: There is no pedal edema. Neurological:. Speech is normal. Skin: Skin is warm and dry - Labs CBC & Chem 7: 07/18/20 03:17 07/18/20 03:17 Labs: Abnormal Lab Results - Last 24 Hours (Table) 05/28/21 05/28/21 05/28/21 Range/Units 03:17 03:17 03:17 RBC 3.35 L (3.80-5.40) m/uL Hgb 10.3 L (11.4-16.0) gm/dL Hct 31.4 L (34.0-46.0) % Chloride 112 H (98-107) mmol/L Carbon Dioxide 20 L (22-30) mmol/L Glucose 68 L (74-99) mg/dL Plasma Lactic Acid Aaron 0.5 L (0.7-2.0) mmol/L Total Protein 5.3 L (6.3-8.2) g/dL Albumin 3.2 L (3.5-5.0) g/dL Assessment and Plan Assessment: 1. Suspected gastric ulcer, with evidence of moderate wall thickening and abnormal mucosal enhancement in the gastric antrum noted on CT. Patient was started on IV Protonix 40 mg twice daily. Gen. surgery consulted for further evaluation. We'll continue IV fluid hydration and pain control. Zofran as needed for nausea. 2. ESBL UTI, with urine culture growing Klebsiella pneumonia done on 07/15. I would switch antibiotic to IV ertapenem and consult infectious disease for fur ther evaluation 3. Chronic medical problems, underlying depression and anxiety Today, I reviewed her medication list and lab work results. Continue nothing by mouth status until abdominal x-ray done and evaluated by general surgery. Switch IV fluids to D5/half-normal saline secondary to hypoglycemia this morning. Continue supportive care otherwise.
[2020-07-18] MEDS: ERTAPENEM 1 GM in SODIUM CHLORIDE 0.9% 50 ML IVPB SCH (11:49)
[2020-07-18 12:11] VITALS: BMI 19.2
--- NOTE | 2020-07-18 12:19 | XR ---
EXAMINATION TYPE: XR abdomen 2V DATE OF EXAM: 07/18/2020 11:04 AM CLINICAL HISTORY: Rule out free air TECHNIQUE: Single supine KUB image of the abdomen is obtained. COMPARISON: CT abdomen and pelvis 07/17/2020 FINDINGS: Nonspecific, nonobstructive bowel gas pattern. No free air on the upright view. Multiple pr esumed pelvic phleboliths. Moderate stool and gas are seen throughout the colon. IMPRESSION: 1. Nonspecific, nonobstructive bowel gas pattern. No free air is seen on the upright view.
[2020-07-18 13:48] VITALS: RESP 16
--- NOTE | 2020-07-18 14:51 | P.PN ---
Subjective Progress Note Date: 07/18/20 Principal diagnosis: Epigastric abdominal pain Patient says her pain is improved today. No nausea or vomiting. Appetite is increasing. She is afebrile. Mild tachycardia earlier. White blood cell count normal. X-ray shows no free air. Objective - Vital Signs Vital signs: Vital Signs Temp 98.1 F 07/18/20 13:45 Pulse 95 07/18/20 13:45 Resp 16 07/18/20 13:45 BP 102/65 07/18/20 13:45 Pulse Ox 98 07/18/20 13:45 Intake & Output 07/17/20 07/18/20 07/18/20 18:59 06:59 18:59 Intake Total 850 Balance 850 Weight 50.9 kg 50.9 kg Intake: Intake, IV Titration 850 Amount Piperacillin-Tazobactam 3 100 .375 gm In Sodium Chloride 0.9% 100 ml @ 25 mls/hr IVPB Q8H [facility] Rx#: [id number] Sodium Chloride 0.9% 1, 750 000 ml @ 75 mls/hr IV . [id number] [facility] Rx#:[id number] Other: # Voids 1 3 1 - Exam Abdomen: Soft, mild to moderate epigastric tenderness, no rebound or guarding, nondistended - Labs CBC & Chem 7: 07/18/20 03:17 07/18/20 03:17 Labs: Abnormal Lab Results - Last 24 Hours (Table) 07/18/20 07/18/20 07/18/20 Range/Units 03:17 03:17 03:17 RBC 3.35 L (3.80-5.40) m/uL Hgb 10.3 L (11.4-16.0) gm/dL Hct 31.4 L (34.0-46.0) % Chloride 112 H (98-107) mmol/L Carbon Dioxide 20 L (22-30) mmol/L Glucose 68 L (74-99) mg/dL Plasma Lactic Acid Aaron 0.5 L (0.7-2.0) mmol/L Total Protein 5.3 L (6.3-8.2) g/dL Albumin 3.2 L (3.5-5.0) g/dL Microbiology - Last 24 Hours (Table) 07/17/20 10:15 Blood Culture - Preliminary Blood No Growth after 24 hours 07/17/20 10:00 Blood Culture - Preliminary Blood No Growth after 24 hours Assessment and Plan (1) Abdominal pain Narrative/Plan: Continue antiacid therapy. Begin ice chips only. Continue antibiotics. Will follow. Current Visit: Yes Status: Acute Code(s): R10.9 - UNSPECIFIED ABDOMINAL PAIN SNOMED Code(s): 69355988
[2020-07-18] MEDS ORDERED: ACETAMINOPHEN IV (For NPO) 500 MG in EMPTY BAG 1 BAG IVPB ONE (20:40)
[2020-07-18] MEDS: clonazePAM 1 MG TAB PO SCH (20:45)
[2020-07-18] MEDS: QUEtiapine 200 MG TAB PO SCH (20:46)
--- NOTE | 2020-07-18 22:01 | CONS ---
CONSULTATION DATE OF SERVICE: 07/18/2020 REASON FOR CONSULTATION: ESBL E coli urinary tract infection. HISTORY OF PRESENT ILLNESS: The patient is a 54-year-old female who presented to [facility] ER yesterday morning for evaluation of abdominal pain. Apparently the patient recently had urinary burning, frequency and some flank pain. She was evaluated in the outpatient setting on July 15 and had a positive UA, for which the patient was started on Bactrim DS. Those cultures subsequently came back positive for ESBL E coli. The patient has been complaining of pain that started 2 days ago and has progressively gotten worse, mostly in the epigastric area. It is described to be sharp, intensity almost 10/10 with associated nausea, but she did not have any vomiting. She was complaining of some constipation and no diarrhea. With these symptoms, the patient was evaluated by the ER physician. Since arrival in the ER the patient has been afebrile. No fever has been recorded. The patient had a normal white count. The patient had normal liver enzymes. UA is negative. The patient did have blood culture; so far negative. CT of abdomen and pelvis was completed which shows some abnormal inflammatory changes related to the stomach and duodenal area with concern for possible gastritis and duodenitis and some involvement of the gallbladder area with concern for possible cholecystitis. General Surgery has been consulted, who has ruled it out. The urine culture is showing ESBL from July 15. The patient was started on Invanz. Infectious Disease was consulted for further management of antibiotic therapy. REVIEW OF SYSTEMS: Positive points have been mentioned in the HPI. Rest of the systems are negative. PAST MEDICAL HISTORY: Rheumatoid arthritis, history of recurrent UTI, history of scoliosis, chronic back pain. PAST SURGICAL HISTORY: Appendectomy, , hysterectomy and breast surgery. SOCIAL HISTORY: Denies smoking, drinking and drug use. FAMILY HISTORY: with history of cancer. ALLERGIES: NITROFURANTOIN, HALOPERIDOL. MEDICATIONS: The patient is currently on Klonopin, dextrose, Cymbalta, ertapenem 1 gram daily. She is on Dilaudid, Narcan, Zofran, Protonix, Senokot. PHYSICAL EXAMINATION: Blood pressure 132/65 with pulse of 95, temperature 98.1. She is 98% on room air. General description is a middle-aged female lying in bed in no distress. No tachypnea or accessory muscle of respiration use. HEENT: Examination shows slight pallor. No scleral icterus. Oral mucous membrane is dry. NECK: Trachea is central. No thyromegaly. LUNGS: Unlabored breathing. Clear to auscultation anteriorly. No wheeze or crackle. HEART: S1, S2. Regular rate and rhythm. ABDOMEN: Soft. No tenderness. No guarding or rigidity. No organomegaly. EXTREMITIES: No edema of the feet. SKIN EXAMINATION: No rash or mass palpable. Neurologically the patient is awake, alert, oriented x3. Mood and affect normal. LABS: Hemoglobin is 10.3, white count of 5.9, BUN of 13, creatinine 0.66. Liver enzymes are normal. Urine is negative. [place] PCR was negative. DIAGNOSTIC IMPRESSION AND PLAN: 1. Patient with urinary symptoms in this patient who did have a positive UA. Did have a urine culture from 07/15/2020 showing ESBL E coli. Question of possible contaminant, as the patient cleared her UA with Bactrim DS only versus mild cystitis. Clinically not behaving as pyelonephritis. 2. Patient with abdominal pain with evidence of gastritis, and concern for possible cholecystitis has been ruled out by General Surgery. PLAN: Keep the patient on IV Invanz while inpatient. However, there is no need for continuation of it in the outpatient setting, as the patient's urine is negative. Thank you for this consultation. Will follow this patient along with you. MMODL / IJN: [id number] /
[2020-07-19] MEDS: HYDROmorphone 0.5 MG/0.5 ML SYRINGE IVP PRN ×4 (00:10→10:42)
[2020-07-19] MEDS: DEXTROSE 5%-0.45% NACL 1,000 ML IV SCH (06:39)
[2020-07-19] MEDS: PANTOPRAZOLE 40 MG/10 ML VIAL IV SCH ×2 (08:54→19:48)
[2020-07-19] MEDS: DULoxetine HCL 30 MG CAPSULE.DR PO SCH ×2 (08:55→20:39)
[2020-07-19] MEDS: ACETAMINOPHEN TAB 325 MG TAB PO PRN ×2 (11:05→19:48)
--- NOTE | 2020-07-19 11:29 | P.PN ---
Subjective Progress Note Date: 07/19/20 Principal diagnosis: Epigastric abdominal pain Patient says her abdominal pain is much improved. She is now complaining of bilateral flank pain that she thinks is related to her kidney infection. She is afebrile. No labs from today. No nausea or vomiting. No rectal bleeding or melena. She is hungry. Objective - Vital Signs Vital signs: Vital Signs Temp 97.5 F L 07/19/20 08:35 Pulse 89 07/19/20 08:35 Resp 16 07/19/20 08:35 BP 100/66 07/19/20 08:35 Pulse Ox 98 07/19/20 08:35 Intake & Output 07/18/20 07/19/20 07/19/20 18:59 06:59 18:59 Weight 50.9 kg Other: Voiding Method Toilet # Voids 1 1 2 - Exam Abdomen: Soft, mild epigastric tenderness, no rebound or guarding - Labs CBC & Chem 7: 07/18/20 03:17 07/18/20 03:17 Labs: Microbiology - Last 24 Hours (Table) 07/17/20 10:15 Blood Culture - Preliminary Blood No Growth after 24 hours 07/17/20 10:00 Blood Culture - Preliminary Blood No Growth after 24 hours Assessment and Plan (1) Abdominal pain Narrative/Plan: Continue aggressive antiacid therapy for possible peptic ulcer disease. Ambulate. Continue antibiotics. Begin clear liquid diet. If doing well will advance diet tomorrow if tolerates May discharge on full liquids/softer foods. We'll plan outpatient endoscopy. Current Visit: Yes Status: Acute Code(s): R10.9 - UNSPECIFIED ABDOMINAL PAIN SNOMED Code(s): 60053237
[2020-07-19] MEDS: ERTAPENEM 1 GM in SODIUM CHLORIDE 0.9% 50 ML IVPB SCH (11:36)
[2020-07-19] MEDS ORDERED: bisacodyL 5 MG TABLET.DR PO PRN (12:18)
--- NOTE | 2020-07-19 12:20 | P.PN ---
Subjective Progress Note Date: 07/19/20 Patient is doing well today. She denies any abdominal pain. She was complaining of lower back pain. She was started on clear liquid diet with no difficulty. Objective - Vital Signs Vital signs: Vital Signs Temp 97.5 F L 07/19/20 08:35 Pulse 89 07/19/20 08:35 Resp 16 07/19/20 08:35 BP 100/66 07/19/20 08:35 Pulse Ox 98 07/19/20 08:35 Intake & Output 07/18/20 07/19/20 07/19/20 18:59 06:59 18:59 Weight 50.9 kg Other: Voiding Method Toilet # Voids 1 1 2 - Exam General: The patient is awake and alert, in no distress Eye: there is normal conjunctiva bilaterally. Neck: The neck is supple, there is no JVD. Cardiovascular: Normal S1-S2, no S3-S4, no murmurs. Respiratory: Lungs clear to auscultation bilaterally Gastrointestinal: Abdomen is soft, nontender Musculoskeletal: There is no pedal edema. Neurological:. Speech is normal. Skin: Skin is warm and dry - Labs CBC & Chem 7: 07/18/20 03:17 07/18/20 03:17 Labs: Microbiology - Last 24 Hours (Table) 07/17/20 10:15 Blood Culture - Preliminary Blood No Growth after 24 hours 07/17/20 10:00 Blood Culture - Preliminary Blood No Growth after 24 hours Assessment and Plan Assessment: 1. Suspected gastric ulcer, with evidence of moderate wall thickening and abnormal mucosal enhancement in the gastric antrum noted on CT. Patient was started on IV Protonix 40 mg twice daily. Gen. surgery consulted for further evaluation. Patient was started on clear liquids today with plan to advance to full liquid/soft diet. Zofran as needed for nausea. 2. ESBL UTI, with urine culture growing Klebsiella pneumonia done on 07/15. Sta rted on IV Invanz. Seen and evaluated by infectious disease. No concern about significant infection as repeat UA is negative. May discontinue antibiotic upon discharge 3. Chronic medical problems, underlying depression and anxiety Today, I reviewed her medication list and lab work results. Advance diet as tolerated. Discontinue IV Dilaudid and resume home dose of [place]. Anticipate discharge home tomorrow.
[2020-07-19] MEDS: HYDROcodone/APAP 10-325MG 1 EACH TAB PO PRN ×3 (13:35→23:32)
[2020-07-19] MEDS ORDERED: MORPHINE SULFATE 2 MG/ML SYRINGE IVP ONE (20:00)
[2020-07-19] MEDS: QUEtiapine 200 MG TAB PO SCH (20:39)
[2020-07-19] MEDS: clonazePAM 1 MG TAB PO SCH (20:39)
[2020-07-19] MEDS: traMADol 50 MG TAB PO PRN (20:57)
--- NOTE | 2020-07-20 00:12 | PN ---
PROGRESS NOTE DATE OF SERVICE: 07/19/2020 REASON FOR FOLLOWUP: UTI infection. INTERVAL HISTORY: The patient is currently afebrile. Still complaining of bilateral flank pain. The patient has been complaining of need for more pain medication. Denies having any chest pain. No shortness of breath or cough. Epigastric pain has improved. Has been started been tolerating and no diarrhea. PHYSICAL EXAMINATION: Blood pressure 104/70 with a pulse of 66, temperature 98.2, she is 96% on room air. General description: The patient is a middle-aged female lying in in no distress. Respiratory system: Unlabored breathing, clear to auscultation anteriorly. Heart S1, S2. Regular rate and rhythm. ABDOMEN: Soft, no tenderness. LABS: Hemoglobin is 10.5, white count 5.9, BUN of 13, creatinine 0.6. Urine is negative. DIAGNOSTIC IMPRESSION AND PLAN: Patient admitted to the hospital with right epigastric area pain and concern for possible disease with a question of pyelonephritis with repeat offsite Hospital was positive for ESBL. However, the patient did have a negative UA. Still complaining of flank pain. Urine will be repeated. Continue Invjez. BERYLL / IJN: [id number] /
[2020-07-20] MEDS: traMADol 50 MG TAB PO PRN ×2 (04:39→12:05)
[2020-07-20 04:53] LABS: Appearance,Urine Clear (Clear); Bilirubin,Urine Negative (Negative); Blood,Urine Negative (Negative); Color,Urine Light Yellow; Glucose,Urine (UA) Negative (Negative); Ketones,Urine Negative (Negative); Leukocyte Esterase,Urine Negative (Negative); Nitrite,Urine Negative (Negative); Protein,Urine Negative (Negative); Specific Gravity,Urine 1.009 (1.001-1.035); Urobilinogen,Urine <2.0 mg/dL (<2.0)
[2020-07-20] MEDS: HYDROcodone/APAP 10-325MG 1 EACH TAB PO PRN ×2 (05:22→11:26)
[2020-07-20] MEDS ORDERED: HYDROmorphone 0.5 MG/0.5 ML SYRINGE IVP ONE (06:00)
--- NOTE | 2020-07-20 08:13 | P.DS ---
Providers Date of admission: 07/17/20 10:15 Expected date of discharge: 07/20/20 Attending physician: Mari Alaniz Consults: 07/17/20 09:57 Consult Physician Urgent Consulting Provider: Onel Reid Consult Reason/Comments: Peptic ulcer disease, abnormal CT Do you want consulting provider notified?: Yes 07/18/20 11:09 Consult Physician Routine Consulting Provider: Gloria Peralta Consult Reason/Comments: ESBL UTI Do you want consulting provider notified?: Yes Primary care physician: [facility] Course: This is a 54-year-old female with past medical history noted below that presented to the emergency room with worsening abdominal pain. He should was evaluated in the ER and placed on observation for further management of her medical problems noted below. 1. Suspected gastric ulcer, with evidence of moderate wall thickening and abnormal mucosal enhancement in the gastric antrum noted on CT. Gen. surgery consulted for further evaluation. Patient was kept nothing by mouth for 24 hours. Repeat abdominal x-ray showed no acute findings. Her diet was advanced slowly. We will continue Protonix 40 mg twice daily. Plan for EGD as an outpat ient. Follow-up with Dr. Gutierrez in the office as directed. 2. ESBL UTI, with urine culture growing Klebsiella pneumonia done on 07/15. Started on IV Invanz. Repeat urinalysis was negative. Patient was seen and evaluated by infectious disease. No further antibiotic treatment outpatient recommended. 3. Chronic medical problems, underlying depression and anxiety, chronic low back pain Physical exam: General: The patient is awake and alert, in no distress Eye: there is normal conjunctiva bilaterally. Neck: The neck is supple, there is no JVD. Cardiovascular: Normal S1-S2, no S3-S4, no murmurs. Respiratory: Lungs clear to auscultation bilaterally Gastrointestinal: Abdomen is soft, nontender Musculoskeletal: There is no pedal edema. Neurological:. Speech is normal. Skin: Skin is warm and dry Patient will be discharged home in a stable condition. For further details about this hospitalization please refer to the electronic chart. Time spent on discharge > 30 minutes including counseling and coordination of care Patient Condition at Discharge: Stable Plan - Discharge Summary Discharge Rx Participant: No New Discharge Prescriptions: New Pantoprazole Sodium [Protonix] 40 mg PO BID #28 tablet. Continue RX: QUEtiapine FUMARATE [SEROquel] 400 mg PO HS RX: Hydrocodone/Acetaminophen [[place] 10-325] 1 tab PO Q6H PRN PRN Reason: Pain RX: clonazePAM [KlonoPIN] 2 mg PO HS RX: bisacodyL [Dulcolax] 5 mg PO DAILY PRN PRN Reason: Constipation RX: Multivitamins, Thera [Multivitamin (formulary)] 1 tab PO DAILY RX: L.acidoph,Paracasei, B.lactis [Probiotic] 1 cap PO DAILY RX: DULoxetine HCL [Cymbalta] 30 mg PO BID Discharge Medication List RX: QUEtiapine FUMARATE [SEROquel] 400 mg PO HS 09/07/19 [History] RX: Hydrocodone/Acetaminophen [[place] 10-325] 1 tab PO Q6H PRN 02/19/20 [History] RX: clonazePAM [KlonoPIN] 2 mg PO HS 02/19/20 [History] RX: L.acidoph,Paracasei, B.lactis [Probiotic] 1 cap PO DAILY 03/21/20 [History] RX: Multivitamins, Thera [Multivitamin (formulary)] 1 tab PO DAILY 03/21/20 [History] RX: bisacodyL [Dulcolax] 5 mg PO DAILY PRN 03/21/20 [History] RX: DULoxetine HCL [Cymbalta] 30 mg PO BID 07/17/20 [History] Pantoprazole Sodium [Protonix] 40 mg PO BID #28 tablet. 07/20/20 [Rx] Follow up Appointment(s)/Referral(s): Onel Reid MD [Medical Doctor] - 10 Days Diana Guerra MD [Primary Care Provider] - 1-2 days Discharge Disposition: HOME SELF-CARE
[2020-07-20] MEDS: DULoxetine HCL 30 MG CAPSULE.DR PO SCH (08:19)
[2020-07-20] MEDS: PANTOPRAZOLE 40 MG/10 ML VIAL IV SCH (08:19)
[2020-07-20 08:31] VITALS: BP 96/61; PULSE 92; TEMP 97.7
[2020-07-20] MEDS: ERTAPENEM 1 GM in SODIUM CHLORIDE 0.9% 50 ML IVPB SCH (11:26)
[2020-07-20] MEDS: ONDANSETRON 4 MG/2 ML VIAL IVP PRN (12:07)
--- NOTE | 2020-07-20 12:40 | P.PN ---
Subjective Progress Note Date: 07/20/20 Principal diagnosis: Epigastric abdominal pain Patient says she is feeling better today. She is tolerating her clear liquids. So far tolerating full liquids as well. She is afebrile. Still having some back pain. Objective - Vital Signs Vital signs: Vital Signs Temp 97.7 F 07/20/20 08:25 Pulse 92 07/20/20 08:25 Resp 16 07/20/20 08:25 BP 96/61 07/20/20 08:25 Pulse Ox 95 07/20/20 08:25 Intake & Output 07/19/20 07/20/20 07/20/20 18:59 06:59 18:59 Output Total 600 Balance -600 Output: Urine 600 Other: Voiding Method Toilet Toilet # Voids 2 3 - Exam Abdomen: Soft, nondistended, minimal epigastric tenderness - Labs CBC & Chem 7: 07/18/20 03:17 07/18/20 03:17 Labs: Microbiology - Last 24 Hours (Table) 07/17/20 10:00 Blood Culture - Preliminary Blood No Growth after 72 hours 07/17/20 10:15 Blood Culture - Preliminary Blood No Growth after 72 hours Assessment and Plan (1) Abdominal pain Narrative/Plan: Continue full liquid diet. Continue antiacid therapy. Discussed with patient to slowly advance diet gradually at home. Patient will follow-up in the office and we will schedule for outpatient endoscopy. Current Visit: Yes Status: Acute Code(s): R10.9 - UNSPECIFIED ABDOMINAL PAIN SNOMED Code(s): 36682791
== END 2020-07-20 13:16 | disposition home or self-care (01) ==
LOC: SUPCPDRO 06:06 → EC 06:06 → 6PED 10:15
PROVIDERS: ADMIT Internal Medicine; ATTEND Internal Medicine
DX: N39.0 Urinary tract infection, site not specified (principal); B96.20 Unspecified Escherichia coli [E. coli] as the cause of diseases classified elsewhere; R00.0 Tachycardia, unspecified; E16.2 Hypoglycemia, unspecified; F32.9 Major depressive disorder, single episode, unspecified; F41.9 Anxiety disorder, unspecified; K29.80 Duodenitis without bleeding; K59.00 Constipation, unspecified; Z20.822 Contact with and (suspected) exposure to COVID-19; M41.9 Scoliosis, unspecified; G89.29 Other chronic pain; M54.5 Low back pain; M06.9 Rheumatoid arthritis, unspecified; G25.81 Restless legs syndrome; Z16.12 Extended spectrum beta lactamase (ESBL) resistance; Z79.899 Other long term (current) drug therapy; Z91.018 Allergy to other foods; Z88.9 Allergy status to unspecified drugs, medicaments and biological substances; Z88.1 Allergy status to other antibiotic agents; Z88.8 Allergy status to other drugs, medicaments and biological substances; Z90.710 Acquired absence of both cervix and uterus; Z90.49 Acquired absence of other specified parts of digestive tract; Z87.440 Personal history of urinary (tract) infections; Z87.11 Personal history of peptic ulcer disease; Z98.1 Arthrodesis status; Z86.018 Personal history of other benign neoplasm; Z80.9 Family history of malignant neoplasm, unspecified
CPT/HCPCS: 96365; 96366 ×3; 96367 ×2; 96376 ×5; 96368; 96375; 99285; 36415; 80053 ×2; 82150 ×2; 83605 ×2; 83690 ×2; 85025 ×2; 81003 ×2; 87040; 87635; 74019; 74177; G0378 ×4; J2543 ×2; J2405 ×3; J1335 ×3; J2270; J0131; J1885; C9113 ×4; J1170 ×4; Q9967

== ENCOUNTER 2020-09-02 07:39 | Day surgery (SDC) | payer BC ==
[2020-09-01 09:45] VITALS: BMI 20.5
[~2020-09-02 07:39] MED LIST changes: +LIDOCAINE 1% (10MG/ML) FOR IV START INTRADERMA PRN
[2020-09-02 08:21] VITALS: RESP 16; TEMP 97.9
[2020-09-02 08:35] LABS: Glucose,Whole Blood 94 mg/dL (75-99)
[2020-09-02] MEDS ORDERED: LIDOCAINE 1% INJ 10MG/ML (20 ML MDV) ONE (08:37)
[2020-09-02] MEDS ORDERED: PROPOFOL 10 MG/ML 20 ML VIAL IV ONE (08:37)
--- NOTE | 2020-09-02 08:52 | P.GSHP ---
History of Present Illness H&P Date: 09/02/20 Chief Complaint: Epigastric pain Patient here today for upper endoscopy. Patient was recently seen in the hospital when she was admitted with severe epigastric pain. CAT scan showed a thickened stomach wall. It was thought the patient may have a gastric ulcer at that time. She was treated for possible ulcer. We held off on endoscopy as we were concerned about the possibility of microperforation. Patient here today for evaluation. Has been on antiacids. Past Medical History Past Medical History: Diabetes Mellitus, Rheumatoid Arthritis (RA) Additional Past Medical History / Comment(s): RLS, back pain, scoliosis, lumbar spondylosis & facet arthropathy. "Pre-diabetic" - diet controlled. Freq UTI. History of Any Multi-Drug Resistant Organisms: ESBL Date of last positivie culture/infection: 07/15/20 ESBL Klebsiella MDRO Source:: Urine Past Surgical History: Appendectomy, Breast Surgery, Section, Hysterectomy Additional Past Surgical History / Comment(s): C-S x2. Rt ovarian cyst exc. Benign cysts removed from bilat breasts. Pain procedures., COLONOSCOPY Past Anesthesia/Blood Transfusion Reactions: No Reported Reaction Smoking Status: Never smoker - Past Family History Brother(s) Family Medical History: Cancer Medications and Allergies Home Medications Medication Instructions Recorded Confirmed Type QUEtiapine FUMARATE [SEROquel] 400 mg PO HS 09/07/19 09/01/20 History Hydrocodone/Acetaminophen [[place] 1 tab PO Q6H PRN 02/19/20 09/01/20 History 10-325] clonazePAM [KlonoPIN] 2 mg PO HS 02/19/20 09/01/20 History L.acidoph,Paracasei, B.lactis 1 cap PO DAILY 03/21/20 09/01/20 History [Probiotic] Multivitamins, Thera [Multivitamin 1 tab PO DAILY 03/21/20 09/01/20 History (formulary)] bisacodyL [Dulcolax] 5 mg PO DAILY PRN 03/21/20 09/01/20 History DULoxetine HCL [Cymbalta] 30 mg PO BID 07/17/20 09/02/20 History Pantoprazole Sodium [Protonix] 40 mg PO BID #28 tablet. 07/20/20 09/01/20 Rx Allergies Allergy/AdvReac Type Severity Reaction Status Date / Time nitrofurantoin Allergy Rash/Hives Verified 09/02/20 08:14 [From Macrobid] buckwheat AdvReac Diarrhea Verified 09/02/20 08:14 haloperidol AdvReac Rapid Verified 09/02/20 08:14 Heart Rate prochlorperazine AdvReac Rapid Verified 09/02/20 08:14 [From Compazine] Heart Rate wheat AdvReac Diarrhea Verified 09/02/20 08:14 Surgical - Exam Vital Signs Temp Pulse Resp BP Pulse Ox 97.9 F 84 16 121/65 97 09/02/20 08:20 09/02/20 08:20 09/02/20 08:20 09/02/20 08:20 09/02/20 08:20 Physical exam: General: Well-developed, well-nourished HEENT: Normocephalic, sclerae nonicteric Abdomen: Nontender, nondistended Extremities: No edema Neuro: Alert and oriented Assessment and Plan (1) Epigastric pain Narrative/Plan: Will proceed with upper endoscopy Current Visit: Yes Status: Acute Code(s): R10.13 - EPIGASTRIC PAIN SNOMED Code(s): 60881849
--- NOTE | 2020-09-02 08:54 | P.PCN ---
Date of Procedure: 09/02/20 Procedure(s) Performed: Preoperative Dx: Epigastric pain Postoperative Dx: Duodenitis, gastritis, small hiatal hernia Procedure: EGD with Bx Anesthesia: Sedation Endoscopist: Dr. Reid Specimens: Antrum Endoscopic Procedure: The patient was on the endoscopy table in the left decubitus position. The Olympus gastroscope was inserted into the oropharynx and passed under direct visualization to the duodenal bulb. The patient had tortuosity between the first and second portion of the duodenum and I could not advance the scope beyond the duodenal bulb. There did appear to be some inflammatory changes at the sweep of the duodenum however a discrete ulcer was not visualized. Multiple attempts were made at passing beyond this area. I suspect some stricture formation in that area likely from ulcer disease. The bulb itself appeared normal. The pylorus was widely patent. The stomach had some retained food material. There was mild gastritis present. A biopsy of antrum took place. Retroflexion revealed small sliding hiatal hernia. The patient's esophagus was examined and appeared normal. The patient was then taken to the recovery room in stable condition per anesthesia guidelines. Recommendations: Continue antiacid therapy. We'll order a upper GI to evaluate for duodenal stricture.
[2020-09-02 09:18] VITALS: BP 110/75; PULSE 81
== END 2020-09-02 09:50 | disposition home or self-care (01) ==
LOC: ORWHC2ENDO 07:39
PROVIDERS: ATTEND Surgery
DX: K29.50 Unspecified chronic gastritis without bleeding (principal); K29.80 Duodenitis without bleeding; K44.9 Diaphragmatic hernia without obstruction or gangrene; Q43.8 Other specified congenital malformations of intestine; R73.03 Prediabetes; M06.9 Rheumatoid arthritis, unspecified; G25.81 Restless legs syndrome; M41.9 Scoliosis, unspecified; M47.816 Spondylosis without myelopathy or radiculopathy, lumbar region; Z86.19 Personal history of other infectious and parasitic diseases; Z90.89 Acquired absence of other organs; Z90.710 Acquired absence of both cervix and uterus; Z98.891 History of uterine scar from previous surgery; Z98.890 Other specified postprocedural states; Z80.9 Family history of malignant neoplasm, unspecified; Z79.899 Other long term (current) drug therapy; Z88.1 Allergy status to other antibiotic agents; Z91.018 Allergy to other foods; F41.9 Anxiety disorder, unspecified
CPT/HCPCS: 88305; 43239; J2001; J2704

== ENCOUNTER 2020-10-15 22:59 | Emergency (ER) | payer BC ==
[2020-10-15 23:22] VITALS: TEMP 98.3
[2020-10-15] MEDS ORDERED: HYDROmorphone 0.5 MG/0.5 ML SYRINGE IVP STA (23:45)
[2020-10-15] MEDS ORDERED: ONDANSETRON 4 MG/2 ML VIAL IVP STA (23:45)
[2020-10-15] MEDS ORDERED: SODIUM CHLORIDE 0.9% 1,000 ML IV STA (23:45)
[2020-10-15] MEDS ORDERED: PANTOPRAZOLE 40 MG/10 ML VIAL IVP STA (23:45)
[2020-10-16 00:35] LABS: Basophils # (A) 0.1 k/uL (0-0.2); Basophils % (A) 1 %; Eosinophils # (A) 0.2 k/uL (0-0.7); Eosinophils % (A) 3 %; HCT 38.4 % (34.0-46.0); HGB 12.7 gm/dL (11.4-16.0); Lymphocytes % (A) 26 %; MCH 30.4 pg (25.0-35.0); MCHC 33.2 g/dL (31.0-37.0); MCV 91.8 fL (80.0-100.0); Mean Platelet Volume 7.7; Monocytes # (A) 0.5 k/uL (0-1.0); Monocytes % (A) 7 %; Neutrophils # (A) 4.6 k/uL (1.3-7.7); Neutrophils % (A) 62 %; Platelet Count 299 k/uL (150-450); RBC 4.19 m/uL (3.80-5.40); RDW 13.8 % (11.5-15.5); WBC 7.5 k/uL (3.8-10.6)
[2020-10-16 00:50] LABS: ALT 10 U/L (4-34); AST 26 U/L (14-36); African American GFR (CKD) >90 (>60 ml/min/1.73 sqM); Albumin 4.4 g/dL (3.5-5.0); Alkaline Phosphatase 76 U/L (38-126); Anion Gap 11 mmol/L; Blood Urea Nitrogen 21 mg/dL (7-17); Calcium 10.4 mg/dL (8.4-10.2); Carbon Dioxide 27 mmol/L (22-30); Chloride 100 mmol/L (98-107); Glucose 110 mg/dL (74-99); Lipase 50 U/L (23-300); Non-African American GFR(CKD) 88 (>60 ml/min/1.73 sqM); Potassium 3.4 mmol/L (3.5-5.1); Sodium 138 mmol/L (137-145); Total Bilirubin 0.3 mg/dL (0.2-1.3); Total Protein 6.8 g/dL (6.3-8.2)
[2020-10-16 01:06] LABS: Amorphous Sediment,Urine Few /hpf; Appearance,Urine Cloudy (Clear); Bilirubin,Urine Negative (Negative); Blood,Urine Negative (Negative); Color,Urine Yellow; Glucose,Urine (UA) Negative (Negative); Ketones,Urine 3+ (Negative); Leukocyte Esterase,Urine Negative (Negative); Mucus,Urine Rare /hpf; Nitrite,Urine Negative (Negative); Protein,Urine Trace (Negative); RBC,Urine 3 /hpf (0-5); Specific Gravity,Urine 1.028 (1.001-1.035); Urobilinogen,Urine <2.0 mg/dL (<2.0)
--- NOTE | 2020-10-16 01:22 | CT ---
EXAMINATION TYPE: CT abdomen pelvis w con DATE OF EXAM: 10/16/2020 COMPARISON: 07/17/2020 HISTORY: N&V, epigastric pain. hx of ulcers. hx of appendectomy CT DLP: 481.2 mGycm Automated exposure control for dose reduction was used. CONTRAST: Performed with IV Contrast, patient injected with 100 mL of Isovue 300. Lung bases are clear. There is no pleural effusion. Heart size is normal. There is no pericardial eff usion. Liver spleen stomach pancreas gallbladder appear intact. The bile ducts are not dilated. Stomach is large. This could relate to recent meal. There is no adrenal mass. Kidneys show satisfactory contrast opacification. There is no hydronephrosi s. Delayed images show normal renal excretion. There is no retroperitoneal adenopathy. Bladder disten ds smoothly. There is no inguinal hernia. There is hysterectomy. There is no free fluid in the pelvis . I see no pelvic mass. There is no mesenteric edema. There is no ascites or free air. There is no sign of a bowel obstructio n. Appendix is not seen. There is no sign of thickened appendix. Lumbar vertebra have normal alignment. There is no compression fracture. There is L5 spondylolysis wi thout any significant spondylolisthesis. The bony pelvis is intact. The hip joints are intact. IMPRESSION: No acute abnormality of the abdomen pelvis. L5 spondylolysis. There is clearing of the inflammatory c hanges and fluid at the proximal duodenum compared to old exam.
[2020-10-16] MEDS ORDERED: HYDROmorphone 1 MG/ML 1 ML SYRINGE IVP STA (01:33)
[2020-10-16] MEDS ORDERED: MAG HYDROX/AL HYDROX/SIMETH 30 ML, HYOSCYAMINE ELIXIR 10 ML, LIDOCAINE VISCOUS 2% 10 ML PO STA ×3 (01:33)
--- NOTE | 2020-10-16 01:39 | ED ---
Abdominal Pain HPI - General Chief Complaint: Abdominal Pain Stated Complaint: Abdominal pain, vomiting Time Seen by Provider: 10/15/20 23:25 Source: patient Mode of arrival: ambulatory Limitations: no limitations - History of Present Illness Initial Comments: 54-year-old female patient with past medical history significant for peptic ulcer disease presents to the emergency department today for evaluation of epigastric abdominal pain. Patient denies any radiation of the pain through to her back. Patient states she's had several episodes of vomiting. Denies fever or chills. Denies any constipation or diarrhea. Denies any hematochezia or melena. States she does have an upper GI scope scheduled for Tuesday. Does take Protonix daily. States pain started last evening and worsened throughout the day. Was able to eat and drink until this evening. Patient denies any recent rash, cough, shortness of breath, chest pain, back pain, numbness, tingling, dizziness, weakness, hematuria, dysuria, urinary urgency, urinary frequency, headache, visual changes, or any other complaints. - Related Data Home Medications Medication Instructions Recorded Confirmed QUEtiapine FUMARATE [SEROquel] 400 mg PO HS 09/07/19 09/01/20 Hydrocodone/Acetaminophen [[place] 1 tab PO Q6H PRN 02/19/20 09/01/20 10-325] clonazePAM [KlonoPIN] 2 mg PO HS 02/19/20 09/01/20 L.acidoph,Paracasei, B.lactis 1 cap PO DAILY 03/21/20 09/01/20 [Probiotic] Multivitamins, Thera [Multivitamin 1 tab PO DAILY 03/21/20 09/01/20 (formulary)] bisacodyL [Dulcolax] 5 mg PO DAILY PRN 03/21/20 09/01/20 DULoxetine HCL [Cymbalta] 30 mg PO BID 07/17/20 09/02/20 Previous Rx's Medication Instructions Recorded Pantoprazole Sodium [Protonix] 40 mg PO BID #28 tablet. 07/20/20 Allergies Allergy/AdvReac Type Severity Reaction Status Date / Time nitrofurantoin Allergy Rash/Hives Verified 10/15/20 23:22 [From Macrobid] buckwheat AdvReac Diarrhea Verified 10/15/20 23:22 haloperidol AdvReac Rapid Verified 10/15/20 23:22 Heart Rate prochlorperazine AdvReac Rapid Verified 10/15/20 23:22 [From Compazine] Heart Rate wheat AdvReac Diarrhea Verified 10/15/20 23:22 Review of Systems ROS Statement: Those systems with pertinent positive or pertinent negative responses have been documented in the HPI. ROS Other: All systems not noted in ROS Statement are negative. Past Medical History Past Medical History: Rheumatoid Arthritis (RA) Additional Past Medical History / Comment(s): RLS, back pain, scoliosis, lumbar spondylosis & facet arthropathy. "Pre-diabetic" - diet controlled. Freq UTI. History of Any Multi-Drug Resistant Organisms: ESBL Date of last positivie culture/infection: 07/15/20 ESBL Klebsiella MDRO Source:: Urine Past Surgical History: Appendectomy, Breast Surgery, Section, H ysterectomy Additional Past Surgical History / Comment(s): C-S x2. Rt ovarian cyst exc. Benign cysts removed from bilat breasts. Pain procedures. Past Anesthesia/Blood Transfusion Reactions: No Reported Reaction Past Psychological History: Anxiety Smoking Status: Never smoker Past Alcohol Use History: None Reported Past Drug Use History: None Reported - Past Family History Brother(s) Family Medical History: Cancer General Exam Limitations: no limitations General appearance: alert, in no apparent distress, other (Physical well- developed, well-nourished adult female patient in no acute distress. Vital signs upon presentation are temperature 98.3F, pulse 109, respirations 20, blood pressure 143/74, pulse ox 98% on room air.) ENT exam: Present: normal exam, normal oropharynx, mucous membranes moist Respiratory exam: Present: normal lung sounds bilaterally. Absent: respiratory distress, wheezes, rales, rhonchi, stridor Cardiovascular Exam: Present: regular rate, normal rhythm, normal heart sounds. Absent: systolic murmur, diastolic murmur, rubs, gallop, clicks GI/Abdominal exam: Present: soft, tenderness (Midepigastric), normal bowel sounds. Absent: distended, guarding, rebound, rigid Neurological exam: Present: alert, oriented X3, CN II-XII intact Psychiatric exam: Present: normal affect, normal mood Skin exam: Present: warm, dry, intact, normal color. Absent: rash Course Vital Signs 10/15/20 10/16/20 23:19 01:39 Temperature 98.3 F Pulse Rate 109 H 84 Respiratory 20 18 Rate Blood Pressure 143/74 101/73 O2 Sat by Pulse 98 95 Oximetry Medical Decision Making - Medical Decision Making 54-year-old female patient presents to the emergency department today for evaluation of epigastric pain and vomiting. Patient does have history of peptic ulcer disease states this is similar to when she had issues with ulcers in the past. Physical examination did reveal midepigastric tenderness. She is afebrile with normal vital signs. Absent reviewed and are unremarkable. CT abdomen and pelvis was negative. She was given pain medication and GI cocktail here. Upon reevaluation states she is feeling better. She'll be discharged PRIMARY care physician for recheck in 1-2 days. She is instructed to call her surgeon for further instruction. Return parameters discussed in detail. She verbalizes understanding and agrees with this plan. Case discussed with my attending Dr. Valera. - Lab Data Result diagrams: 10/16/20 00:10 10/16/20 00:10 Lab Results 10/16/20 10/16/20 10/16/20 Range/Units 00:10 00:10 00:10 WBC 7.5 (3.8-10.6) k/uL RBC 4.19 (3.80-5.40) m/uL Hgb 12.7 (11.4-16.0) gm/dL Hct 38.4 (34.0-46.0) % MCV 91.8 (80.0-100.0) fL MCH 30.4 (25.0-35.0) pg MCHC 33.2 (31.0-37.0) g/dL RDW 13.8 (11.5-15.5) % Plt Count 299 (150-450) k/uL MPV 7.7 Neutrophils % 62 % Lymphocytes % 26 % Monocytes % 7 % Eosinophils % 3 % Basophils % 1 % Neutrophils # 4.6 (1.3-7.7) k/uL Lymphocytes # 2.0 (1.0-4.8) k/uL Monocytes # 0.5 (0-1.0) k/uL Eosinophils # 0.2 (0-0.7) k/uL Basophils # 0.1 (0-0.2) k/uL Sodium 138 (137-145) mmol/L Potassium 3.4 L (3.5-5.1) mmol/L Chloride 100 (98-107) mmol/L Carbon Dioxide 27 (22-30) mmol/L Anion Gap 11 mmol/L BUN 21 H (7-17) mg/dL Creatinine 0.77 (0.52-1.04) mg/dL Est GFR (CKD-EPI)AfAm >90 (>60 ml/min/1.73 sqM) Est GFR (CKD-EPI)NonAf 88 (>60 ml/min/1.73 sqM) Glucose 110 H (74-99) mg/dL Plasma Lactic Acid Aaron (0.7-2.0) mmol/L Calcium 10.4 H (8.4-10.2) mg/dL Total Bilirubin 0.3 (0.2-1.3) mg/dL AST 26 (14-36) U/L ALT 10 (4-34) U/L Alkaline Phosphatase 76 (38-126) U/L Total Protein 6.8 (6.3-8.2) g/dL Albumin 4.4 (3.5-5.0) g/dL Lipase 50 (23-300) U/L Urine Color Yellow Urine Appearance Cloudy H (Clear) Urine pH 7.0 (5.0-8.0) Ur Specific [place] 1.028 (1.001-1.035) Urine Protein Trace H (Negative) Urine Glucose (UA) Negative (Negative) Urine Ketones 3+ H (Negative) Urine Blood Negative (Negative) Urine Nitrite Negative (Negative) Urine Bilirubin Negative (Negative) Urine Urobilinogen <2.0 (<2.0) mg/dL Ur Leukocyte Esterase Negative (Negative) Urine RBC 3 (0-5) /hpf Amorphous Sediment Few H (None) /hpf Urine Mucus Rare H (None) /hpf 10/16/20 Range/Units 00:10 WBC (3.8-10.6) k/uL RBC (3.80-5.40) m/uL Hgb (11.4-16.0) gm/dL Hct (34.0-46.0) % MCV (80.0-100.0) fL MCH (25.0-35.0) pg MCHC (31.0-37.0) g/dL RDW (11.5-15.5) % Plt Count (150-450) k/uL MPV Neutrophils % % Lymphocytes % % Monocytes % % Eosinophils % % Basophils % % Neutrophils # (1.3-7.7) k/uL Lymphocytes # (1.0-4.8) k/uL Monocytes # (0-1.0) k/uL Eosinophils # (0-0.7) k/uL Basophils # (0-0.2) k/uL Sodium (137-145) mmol/L Potassium (3.5-5.1) mmol/L Chloride (98-107) mmol/L Carbon Dioxide (22-30) mmol/L Anion Gap mmol/L BUN (7-17) mg/dL Creatinine (0.52-1.04) mg/dL Est GFR (CKD-EPI)AfAm (>60 ml/min/1.73 sqM) Est GFR (CKD-EPI)NonAf (>60 ml/min/1.73 sqM) Glucose (74-99) mg/dL Plasma Lactic Acid Aaron 1.0 (0.7-2.0) mmol/L Calcium (8.4-10.2) mg/dL Total Bilirubin (0.2-1.3) mg/dL AST (14-36) U/L ALT (4-34) U/L Alkaline Phosphatase (38-126) U/L Total Protein (6.3-8.2) g/dL Albumin (3.5-5.0) g/dL Lipase (23-300) U/L Urine Color Urine Appearance (Clear) Urine pH (5.0-8.0) Ur Specific [place] (1.001-1.035) Urine Protein (Negative) Urine Glucose (UA) (Negative) Urine Ketones (Negative) Urine Blood (Negative) Urine Nitrite (Negative) Urine Bilirubin (Negative) Urine Urobilinogen (<2.0) mg/dL Ur Leukocyte Esterase (Negative) Urine RBC (0-5) /hpf Amorphous Sediment (None) /hpf Urine Mucus (None) /hpf - Radiology Data Radiology results: report reviewed, image reviewed CT abdomen and pelvis with contrast was obtained. Report was reviewed in its entirety. Impression by Dr. Hartley shows no acute abnormality of the abdomen and pelvis. L5 spondylolysis. There is clearing of inflammatory changes and fluid at the proximal duodenum compared to old exam. Disposition Clinical Impression: Abdominal pain Disposition: HOME SELF-CARE Condition: Good Instructions (If sedation given, give patient instructions): Abdominal Pain (ED) Additional Instructions: Follow-up with your surgeon as soon as possible for further evaluation. Return to the emergency department for any new, worsening, or concerning symptoms. Is patient prescribed a controlled substance at d/c from ED?: No Referrals: Diana Guerra MD [Primary Care Provider] - 1-2 days Time of Disposition: 02:16
[2020-10-16 01:40] VITALS: RESP 18
[2020-10-16 02:31] VITALS: BP 112/86; PULSE 82
== END 2020-10-16 02:43 | disposition home or self-care (01) ==
LOC: EC 22:59
DX: R10.13 Epigastric pain (principal); M06.9 Rheumatoid arthritis, unspecified; F41.9 Anxiety disorder, unspecified; Z79.899 Other long term (current) drug therapy; Z88.1 Allergy status to other antibiotic agents
CPT/HCPCS: 36415; 80053; 83605; 83690; 85025; 81001; 74177; 99284; 96374; 96375 ×2; 96376; 96361; J2405; J1170 ×2; C9113; Q9967

== ENCOUNTER → 2021-02-13 | Outpatient (CLI) | payer BC ==
[2021-02-13] MEDS: SODIUM CHLORIDE 0.9% 500 ML 500 ML in EMPTY BAG 1 BAG IV PRN (09:05)
[2021-02-13] MEDS: SODIUM FERRIC GLUCONAT-SUCROSE 125 MG in SODIUM CHLORIDE 0.9% 100 ML IVPB NR (09:07)
[2021-02-13 09:21] VITALS: BP 111/79; PULSE 108; RESP 16; TEMP 98.3
== END ==
LOC: PROCWHC3 08:49
PROVIDERS: ATTEND Nurse Practitioner Family
DX: D50.9 Iron deficiency anemia, unspecified (principal); Z88.1 Allergy status to other antibiotic agents; Z91.018 Allergy to other foods; Z88.8 Allergy status to other drugs, medicaments and biological substances
CPT/HCPCS: 96365; J2916

== ENCOUNTER → 2021-06-19 | Outpatient (CLI) | payer BC ==
[2021-06-19 23:13] LABS: HCT 41.5 % (37.2-46.3); MCHC 31.3 g/dL (32.0-37.0); MCV 95.8 fL (80.0-97.0); Mean Platelet Volume 10.4 fL (9.5-12.2); NRBC Per 100 WBC 0 /100 WBCS (0.0-0.0); Platelet Count 303 X 10*3/uL (140-440); RBC 4.33 X 10*6/uL (4.10-5.20); RDW 12.1 % (11.5-14.5); WBC 8.39 X 10*3/uL (4.50-10.00)
[2021-06-19 23:28] LABS: % Iron Saturation 18.61 (12.00-45.00); Ferritin 84.8 ng/mL (10.0-291.0)
== END | disposition home or self-care (01) ==
LOC: LABWHC1 12:02
PROVIDERS: ATTEND Nurse Practitioner Family
DX: D64.9 Anemia, unspecified (principal); E61.1 Iron deficiency; R53.83 Other fatigue
CPT/HCPCS: 36415; 82728; 83540; 83550; 85027